=== PATIENT | male | born 1940 | race Caucasian/White ===

== ENCOUNTER 2021-02-15 09:59 | Outpatient (CLI) | payer MEDICARE, SELFPAY ==
--- NOTE | 2021-02-15 13:14 | WPDPFTINT ---
PFT Procedure Performed PFT Procedure Performed Spirometry with Pre/Post Bronchodilator Plethysmography (Lung Vol) Diffusing Cap (DLCO) Flow Vol Loop PFT Interpretation Lung volumes were measured with the body plethysmography method. The diminished across the board lung volumes are indicative of restrictive respiratory disease. Spirometry shows diminished expiratory flow rates, and a normal FEV1 to FVC ratio 79%, also consistent with restrictive respiratory disease. Following administration of a bronchodilator there was no significant change in the expiratory flow rates. Lung diffusion capacity is severely reduced at 51% predicted. Flow volume loop is consistent with restrictive respiratory disease. Impression: Severe restrictive respiratory disease. Severely reduced lung diffusion capacity.
--- NOTE | 2021-02-15 13:17 | WPDSIXMINUTE ---
Six Minute Walk Procedure Procedure Performed Pulmonary Stress Test (6 min walk) Six Minute Walk This 6 minute walk test was carried out with the patient breathing supplemental oxygen at 2 liters/minute. The pre-walk oxyhemoglobin saturation was 94%. The patient's perceived dyspnea at baseline was 0 on the Jose David scale. The patient was able to walk 213 m with no stops. Oxyhemoglobin saturation remained over 89% throughout the walk. The perceived dyspnea at the end of the walk was 3 on the Jose David scale. During the recovery phase the oxyhemoglobin saturation transiently decreased to 87%. Impression: No significant oxyhemoglobin desaturation on this testing.
== END 2021-02-15 10:00 | disposition home or self-care (01) ==
LOC: ANHPFT 10:02
PROVIDERS: PCP Nurse Practitioner Adult Health; Visit Provider Nurse Practitioner
DX: U07.1 COVID-19 (principal)
CPT/HCPCS: 94060; 94618; 94726; 94729

== ENCOUNTER 2023-06-20 18:25 | Emergency (ER) | payer MEDICARE, SELFPAY ==
[2023-06-20] VITALS (12 sets, daily range): BP systolic 105–172; BP diastolic 57–84; PULSE 83–116; RESP 15–25; TEMP 36.3; O2SAT 90–100
--- NOTE | ~2023-06-20 | XR_ITS ---
EXAMINATION: XR chest 2V DATE: 06/20/2023 19:22 INDICATION: Hypertension. TECHNIQUE: Frontal and lateral views of the chest were obtained. COMPARISON: CT abdomen 11/22/2007 FINDINGS: There is mild elevation of right hemidiaphragm. There is mild atelectasis at right lung bas e. No pleural effusion or pneumothorax. The heart size is . IMPRESSION: 1. Mild atelectasis at right lung base. Reviewed, dictated and finalized at location E. END DEVELOPER
--- NOTE | 2023-06-20 18:26 | ECG_ITS ---
Measurements Intervals [place] Rate: 112 P: MT: 0 QRS: -41 QRSD: 95 T: 5 QT: 300 QTc: 411 Interpretive Statements ATRIAL FLUTTER WITH RAPID VENTRICULAR RESPONSE ANTEROLATERAL INFARCT, AGE INDETERMINATE INFERIOR INFARCT, AGE INDETERMINATE BORDERLINE ST-T WAVE ABNORMALITY- HIGH LATERAL LEADS ABNORMAL ECG NO PREVIOUS ECG AVAILABLE FOR COMPARISON Electronically Signed On 06-20-2023 19:34:53 LOOM CHANGEOVER OPERATOR by Gera Sheffield D.O.
--- NOTE | 2023-06-20 18:37 | ED.ARRPALP ---
HPI - Arrhythmia/Palpitations General Chief Complaint: Arrhythmia/Palpitations Stated Complaint: fast heart rate Time Seen by Provider: 06/20/23 18:29 Source: patient and family ( and son) Mode of arrival: ambulatory Limitations: no limitations History of Present Illness HPI narrative: This is a 83-year-old male who presents with concern for fast heart rate. Patient has a monitor he places on his finger occasionally and he has noticed he has had of a fast heart rate for the past 3 days, noted to be in the 120s. Denies any shortness of breath, chest pain, palpitations. No LE edema. 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 Jacqueline Aguilar and has an appointment already scheduled for Thursday. He had a heart catheterization performed that showed <20% blockages in 2 coronary arteries. Patient's medication list includes: allopurinol, doxazosin (alpha kailash antihypertensive), finasteride, indapamide (diuretic), potassium chloride, atorvastatin, nifedipine 30mg once daily taken in the morning, metoprolol 50mg once daily taken at night, fluticasone, omeprazole. recently prescribed Bactrim for urinary tract infection has 3 more doses. Related Data Allergies Allergy/AdvReac Type Severity Reaction Status Date / Time No Known Allergies Allergy Mild Unverified 06/23/03 10:34 PMFSH Past Medical History Medical History COVID 2020 Hearing aid worn Long COVID On supplemental oxygen therapy 2LPM via nasal cannula QHS Surgical History Surgical History History of cardiac catheterization 16% blockage in one vessel; 14% blockage in another vessel by pt report; performed in [place] Social History Social History (Updated 06/20/23 @ 21:54 by Ludmila Pollack MD) Alcohol intake: current Drinks per week: 1 Alcohol use details: Drinks approximately 5 per month Living arrangements: with family Exam Narrative: GENERAL: Well-appearing, well-nourished, and in no acute distress. HEAD: Normocephalic, atraumatic. EYES: Non injected, non icteric ENT: Nares clear, no rhinorrhea or epistaxis. Hearing aid in right ear NECK: Supple. CHEST: Clear to auscultation bilaterally without wheezes, crackles. No respiratory distress. speaking in full sentences HEART: irregularly irregular rate and rhythm with intermittently bounding pulses in bilateral radial arteries ABDOMEN: Soft, nondistended. Obese EXTREMITIES: Normal range of motion. No edema. SKIN: Warm, dry, no rash. Telangiectasias across upper chest NEURO: No focal deficits. Alert and oriented x3. PSYCH: Normal mood and affect. Course Vital Signs Vital signs: Vital Signs Temperature 97.3 F L 06/20/23 18:31 Pulse Rate 116 H 06/20/23 18:31 Respiratory Rate 19 06/20/23 18:31 Blood Pressure 157/77 H 06/20/23 18:31 Pulse Oximetry 95 06/20/23 18:31 Temperature 97.3 F L 06/20/23 18:31 Pulse Rate 86 06/20/23 21:22 Respiratory Rate 16 06/20/23 21:22 Blood Pressure 133/57 L 06/20/23 21:22 Pulse Oximetry 98 06/20/23 21:22 MDM - Arrhythmia/Palpitations MDM Narrative Medical decision making narrative: Patient presented with concern for fast heart rate seen on a finger monitor but otherwise asymptomatic without dyspnea, chest pain or palpitations. Physical exam revealed an irregular and rapid heartbeat at a rate of 116 beats per minute. Based on this, the most likely diagnosis is atrial fibrillation versus aflutter with rapid ventricular response (AFib with RVR). This is supported by age, underlying cardiopulmonary disease, hypertension. An IV was placed and the patient was put on cardiac and pulse oximetry monitors. Patient is noted then to have a rate between 125 and 155. Patient hemodynamically stable thus early priority in management was to slow the ventricular rate using metoprolol given this is a medicat
[2023-06-20 18:44] LABS: Basophils Absolute Auto 0.1 K/mm3 (0.0-0.1); Basophils Percent Auto 0.7 % (0.2-1.2); Eosinophils Absolute Auto 0.3 K/mm3 (0-0.3); Eosinophils Percent Auto 2.7 % (0-4.4); Hematocrit 39.8 % (42.0-52.0); Hemoglobin 12.7 g/dL (14.0-18.0); Immature Granulocyte Absolute 0.12 K/mm3 (0.00-0.031); Immature Granulocyte Percent A 1.1 % (0-0.5); Lymphocytes Absolute Auto 2.01 K/mm3 (0.9-3.2); Lymphocytes Percent Auto 18.9 % (18.3-44.2); Mean Corpuscular HGB Conc 31.9 g/dl (32-36); Mean Corpuscular Hemoglobin 28.2 pg (26-34); Mean Corpuscular Volume 88.2 fl (80-100); Mean Platelet Volume 11.3 fl (7.4-10.4); Monocytes Percent Auto 9.4 % (2.6-8.5); Neutrophils Absolute Auto 7.1 K/mm3 (1.3-6.7); Neutrophils Percent Auto 67.2 % (45.5-73.1); Platelet Count Result 240 k/mm3 (150-375); Red Blood Count 4.51 M/mm3 (4.6-6.20); Red Cell Distribution Width 15.9 % (11.5-14.5); White Blood Count 10.6 K/mm3 (4.5-10.0)
[2023-06-20 18:55] LABS: INR 1.1; Prothrombin Time 14.6 Seconds (11.1-14.7)
[2023-06-20 18:56] LABS: Partial Thromboplastin Time 31.4 SECONDS (22.3-36.8)
[2023-06-20 18:58] LABS: Alanine Aminotransferase 84 U/L (6-50); Albumin Level 3.6 g/dL (3.5-5.1); Alkaline Phosphatase 202 U/L (38-126); Anion Gap 4 mmol/L (8-16); Aspartate Amino Transferase 70 U/L (17-59); Bilirubin,Total 0.6 mg/dL (0.2-1.3); Blood Urea Nitrogen 23 mg/dL (9-20); Calcium 9.1 mg/dL (8.4-10.2); Carbon Dioxide 27 mmol/L (22-30); Chloride 103 mmol/L (98-107); Estimated CRCL calculation 50 ml/min; Estimated Glomerular Filt Rate 58; Glucose 108 mg/dL (65-110); Lipase 192 U/L (23-300); Potassium 4.4 mmol/L (3.4-5.0); Sodium 134 mmol/L (137-145)
[2023-06-20 19:09] LABS: Troponin I < 0.012 ng/mL (0.000-0.034)
[2023-06-20] MEDS: METOPROLOL TARTRATE INJ 5 MG/5 ML VIAL 2.5 MG IV PUSH (19:37)
--- NOTE | 2023-06-20 20:13 | ECG_ITS ---
Measurements Intervals [place] Rate: 81 P: MD: 0 QRS: -32 QRSD: 99 T: 20 QT: 384 QTc: 446 Interpretive Statements ATRIAL FLUTTER WITH NORMAL VENTRICULAR RESPONSE LEFT AXIS DEVIATION CONSIDER ANTERIOR INFARCT, AGE INDETERMINATE INFERIOR INFARCT, AGE INDETERMINATE ABNORMAL ECG COMPARED TO ECG 06/20/2023 18:34:11 HEART RATE HAS DECREASED Electronically Signed On 06-21-2023 9:43:30 CDT by Gera Sheffield D.O.
[2023-06-20] MEDS: APIXABAN 5 MG TABLET PO (21:21)
== END 2023-06-20 21:24 | disposition home or self-care (01) ==
PROVIDERS: Emergency Provider Student in an Organized Health Care Education/Training Program; PCP Nurse Practitioner Adult Health
DX: I48.0 Paroxysmal atrial fibrillation (principal); D72.829 Elevated white blood cell count, unspecified; D64.9 Anemia, unspecified; E87.1 Hypo-osmolality and hyponatremia; R74.01 Elevation of levels of liver transaminase levels; Z79.899 Other long term (current) drug therapy
CPT/HCPCS: 36415; 71046; 80053; 83690; 83735; 84443; 84484; 85025; 85610; 85730; 93005; 96374; 99284; A9270

== ENCOUNTER 2023-09-10 08:29 | Outpatient (CLI) | payer MEDICARE, SELFPAY ==
--- NOTE | ~2023-09-10 | CT_ITS ---
CT of the Abdomen and Pelvis: Indication: Hematuria Technique: 2.5 mm axial scans were obtained through the abdomen and pelvis prior to and following in travenous administration of 130 cc of Omnipaque 350. Dose reduction technique was used on this scan b y utilizing automated exposure control and iterative reconstruction technique. The dose-length produc t (DLP) was 3052.55 mGy-cm. Findings: Scans through the lung bases demonstrate mild dependent atelectatic changes. The liver, spleen, pancreas, and adrenal glands are within normal limits. Kidneys are unremarkable as keith from small cysts. There is mild diffuse gallbladder wall thickening. There are atherosclerotic ca lcifications of the aorta. No lymphadenopathy. No bowel obstruction or bowel wall thickening. There is no evidence to suggest acute appendicitis. Images through the pelvis were performed. Multiple urinary bladder diverticula are present, largest p osteriorly measuring 5.7 cm in maximum diameter. Prostate gland is enlarged, and indents through the bladder base. No ascites. Impression: Enlarged prostate gland which indents the bladder base. Multiple urinary bladder diverticula. No definite bladder mass seen. Consider cystoscopy as indicated . Gallbladder wall thickening, nonspecific. Consider gallbladder ultrasound to further evaluate. Reviewed, dictated and finalized at location . Impression: Enlarged prostate gland which indents the bladder base. Multiple urinary bladder diverticula. No definite bladder mass seen. Consider c ystoscopy as indicated. Gallbladder wall thickening, nonspecific. Consider gallbladder ultrasound to fu rther evaluate.
[2023-09-10 08:53] LABS: Estimated Glomerular Filt Rate 53
== END 2023-09-10 08:30 | disposition home or self-care (01) ==
LOC: ANHIMG 08:31
PROVIDERS: PCP Nurse Practitioner Adult Health; Visit Provider Urology
DX: R31.0 Gross hematuria (principal); N40.0 Benign prostatic hyperplasia without lower urinary tract symptoms; N32.3 Diverticulum of bladder
CPT/HCPCS: 74178; Q9967

== ENCOUNTER 2023-09-18 13:39 | Outpatient (CLI) | payer MEDICARE, SELFPAY ==
--- NOTE | ~2023-09-18 | CT_ITS ---
EXAMINATION: CT diagnostic chest wo con DATE: 09/18/2023 14:13 INDICATION: Pulmonary fibrosis. TECHNIQUE: Computed tomography (CT) of the chest was performed without intravenous contrast. The dose -length product was 710.29 mGy-cm. Automated exposure control and iterative reconstruction technique were employed. COMPARISON: Chest x-ray dated 06/20/2023 FINDINGS: No thoracic lymphadenopathy. No significant pleural or pericardial effusion. Heart size nor mal. There is gallbladder wall thickening with subtle pericholecystic fatty infiltration. Recommend f urther evaluation of gallbladder with ultrasound low lung volumes. Elevated right diaphragm. There ar e calcified granulomas in the lungs. There are a few small noncalcified nodules measuring 2 mm or les s. There is lower lobe bronchiectasis. There is mild interlobular septal thickening of the lower lobe s and lingula. IMPRESSION: 1. Mild interstitial lung disease, likely chronic. 2: Gallbladder wall thickening with subtle pericholecystic fatty infiltration. Recommend further amanda luation with ultrasound. 3: Small scattered pulmonary nodules measuring 2 mm or less, likely benign. Reviewed, dictated and finalized at location B. IMPRESSION: 1. Mild interstitial lung disease, likely chronic. 2: Gallbladder wall thickening with subtle pericholecystic fatty infiltration. Recommend further evaluation with ultrasound. 3: Small scattered pulmonary nodules measuring 2 mm or less, likely benign.
== END 2023-09-18 13:40 | disposition home or self-care (01) ==
LOC: ANHIMG 13:41
PROVIDERS: PCP Nurse Practitioner Adult Health; Visit Provider Internal Medicine Pulmonary Disease
DX: J84.10 Pulmonary fibrosis, unspecified (principal); R91.8 Other nonspecific abnormal finding of lung field
CPT/HCPCS: 71250

== ENCOUNTER 2023-12-01 06:41 | Outpatient (CLI) | payer MEDICARE, SELFPAY ==
[2023-12-01 18:55] LABS: Alanine Aminotransferase 26 U/L (6-50); Albumin Level 3.6 g/dL (3.5-5.1); Alkaline Phosphatase 70 U/L (38-126); Anion Gap 5 mmol/L (4-12); Aspartate Amino Transferase 53 U/L (17-59); Bilirubin,Total 1.1 mg/dL (0.2-1.3); Blood Urea Nitrogen 22 mg/dL (9-20); Calcium 8.8 mg/dL (8.4-10.2); Carbon Dioxide 37 mmol/L (22-30); Chloride 99 mmol/L (98-107); Cholesterol 98 mg/dL (0-200); Estimated Glomerular Filt Rate > 60; Glucose 99 mg/dL (65-110); HDL Direct 31 mg/dL; Potassium 3.6 mmol/L (3.4-5.0); Sodium 141 mmol/L (137-145); Triglycerides 97 mg/dL (<150); Uric Acid 4.1 mg/dL (3.5-8.5)
[2023-12-01 19:06] LABS: LDL Cholesterol Direct 36 mg/dL
== END 2023-12-01 06:42 | disposition home or self-care (01) ==
PROVIDERS: PCP Nurse Practitioner Adult Health; Visit Provider Nurse Practitioner Adult Health
DX: E78.5 Hyperlipidemia, unspecified (principal); M10.9 Gout, unspecified
CPT/HCPCS: 36415; 80053; 80061; 84443; 84550

== ENCOUNTER 2024-01-04 15:46 | Outpatient (CLI) | payer MEDICARE, SELFPAY ==
[2024-01-04 20:12] LABS: Add Urine Microscopic? YES; Appearance Urine Turbid (Clear); Bacteria Urine 4+ /hpf; Bilirubin Urine Negative (Negative); Blood Urine 3+ (Negative); Color Urine Yellow (Yellow); Glucose Urine UA Negative (Negative); Ketones Urine Negative (Negative); Leukocyte Esterase Ur 3+ LEU/UL (Negative); Need Manual Microscopic Reviewed; Nitrate Urine Negative (Negative); Non Pathogenic Casts 0-2; Protein Urine 2+ mg/dL (Negative); RBC Urine 21-50 /hpf (0-2); Specific Grav Ur 1.016 (1.001-1.035); Squamous Epithelial Cell Urine Few /hpf (Few); Urobilinogen Urine 0.2 mg/dL (<2.0); WBC Urine >100 /hpf (0-3)
== END 2024-01-04 15:47 | disposition home or self-care (01) ==
LOC: ANHBWCLAB 15:48
PROVIDERS: PCP Nurse Practitioner Adult Health; Visit Provider Nurse Practitioner Adult Health
DX: R39.9 Unspecified symptoms and signs involving the genitourinary system (principal)
CPT/HCPCS: 81001; 87086

== ENCOUNTER 2024-01-20 09:48 | Outpatient (CLI) | payer MEDICARE, SELFPAY ==
[2024-01-20 18:47] LABS: Add Urine Microscopic? YES; Appearance Urine Turbid (Clear); Bacteria Urine 4+ /hpf; Bilirubin Urine Negative (Negative); Blood Urine 2+ (Negative); Color Urine Yellow (Yellow); Glucose Urine UA Negative (Negative); Ketones Urine Negative (Negative); Leukocyte Esterase Ur 3+ LEU/UL (Negative); Need Manual Microscopic Reviewed; Nitrate Urine Negative (Negative); Protein Urine 2+ mg/dL (Negative); Specific Grav Ur 1.015 (1.001-1.035); Squamous Epithelial Cell Urine Occasional /hpf (Few); Urobilinogen Urine 0.2 mg/dL (<2.0); WBC Urine >100 /hpf (0-3)
== END 2024-01-20 09:49 | disposition home or self-care (01) ==
LOC: ANHBWCLAB 09:50
PROVIDERS: PCP Nurse Practitioner Adult Health; Visit Provider Nurse Practitioner Adult Health
DX: R39.9 Unspecified symptoms and signs involving the genitourinary system (principal)
CPT/HCPCS: 81001; 87086

== ENCOUNTER 2024-01-26 09:43 | Outpatient (CLI) | payer MEDICARE, SELFPAY ==
[2024-01-26 19:17] LABS: INR 2.2; Prothrombin Time 24.7 Seconds (11.1-14.7)
[2024-01-26 19:18] LABS: Partial Thromboplastin Time 37.1 Seconds (22.3-36.8)
[2024-01-26 19:20] LABS: Add Urine Microscopic? YES; Appearance Urine Cloudy (Clear); Bacteria Urine None Seen /hpf; Bilirubin Urine Negative (Negative); Blood Urine 3+ (Negative); Color Urine Yellow (Yellow); Glucose Urine UA Negative (Negative); Ketones Urine Negative (Negative); Leukocyte Esterase Ur 3+ LEU/UL (Negative); Nitrate Urine Negative (Negative); Protein Urine 2+ mg/dL (Negative); RBC Urine 51-100 /hpf (0-2); Specific Grav Ur 1.014 (1.001-1.035); Squamous Epithelial Cell Urine None Seen /hpf (Few); Urobilinogen Urine 0.2 mg/dL (<2.0); WBC Urine >100 /hpf (0-3)
== END 2024-01-26 09:44 | disposition home or self-care (01) ==
LOC: ANHBWCLAB 09:45
PROVIDERS: PCP Nurse Practitioner Adult Health; Visit Provider Nurse Practitioner Adult Health
DX: R39.9 Unspecified symptoms and signs involving the genitourinary system (principal); Z51.81 Encounter for therapeutic drug level monitoring; Z79.899 Other long term (current) drug therapy
CPT/HCPCS: 36415; 81001; 85610; 85730; 87086

== ENCOUNTER 2024-02-23 13:51 | Outpatient (CLI) | payer MEDICARE, SELFPAY ==
[2024-02-23 19:22] LABS: Add Urine Microscopic? YES; Appearance Urine Turbid (Clear); Bacteria Urine 4+ /hpf; Bilirubin Urine Negative (Negative); Blood Urine 3+ (Negative); Budding Yeast Urine Present /hpf; Color Urine Yellow (Yellow); Glucose Urine UA Negative (Negative); Ketones Urine Negative (Negative); Leukocyte Esterase Ur 3+ LEU/UL (Negative); Need Manual Microscopic Reviewed; Nitrate Urine Negative (Negative); Non Pathogenic Casts 0-2; Protein Urine 2+ mg/dL (Negative); RBC Urine >100 /hpf (0-2); Specific Grav Ur 1.015 (1.001-1.035); Squamous Epithelial Cell Urine Few /hpf (Few); Urobilinogen Urine 0.2 mg/dL (<2.0); WBC Urine >100 /hpf (0-3); pH Urine 5.5 (5.0-9.0)
== END 2024-02-23 13:52 | disposition home or self-care (01) ==
LOC: ANHBWCLAB 13:53
PROVIDERS: PCP Nurse Practitioner Adult Health; Visit Provider Nurse Practitioner Adult Health
DX: N39.0 Urinary tract infection, site not specified (principal)
CPT/HCPCS: 81001; 87086

== ENCOUNTER 2024-05-18 10:00 | Outpatient (CLI) | payer MEDICARE, SELFPAY ==
--- OUTSIDE RECORDS SUMMARY | 2024-05-18 10:54 | XMS_ITS | Referral Summary ---
Author Organization [facility] Address [address] [place] [address] Care Team Providers Care Food Porter Name Role Phone Dayna Parikh SHABNAM-SENIOR PHYSICIAN Primary Care Provider + Source Comments [facility],non-owned Affiliates and Associated Physician Practices is amultiple site organization consisting of ambulatory clinics and hospital sitesin [place], [place], [place] and [place]. This disclosure is being madepursuant to the Care Everywhere program and may not contain all information available regarding this patient. Last updated 18.[facility] Allergies No known active allergies Medications * Be aware that medications may not be up to date on this document. Alwaysverify current medications with the patient. Medication Sig Dispensed Refills Start Date End Date Status allopurinol (ZYLOPRIM) 300 MG tablet Take 300 mg by mouth once daily Active aspirin (ASPIRIN) 81 MG chew tablet Take 81 mg by mouth once daily Active doxazosin (CARDURA) 8 MG tablet Take 8 mg by mouth at bedtime Active finasteride (PROSCAR) 5 MG tablet Take 5 mg by mouth once daily Active indapamide (LOZOL) 2.5 MG tablet Take 2.5 mg by mouth once daily Active potassium chloride ER (KLOR-CON M) 20 MEQ tablet Take 20 mEq by mouth 3 times daily Active losartan (COZAAR) 100 MG tablet Take 100 mg by mouth once daily Active NIFEdipine CR 24hr (ADALAT CC) 90 MG tablet Take 90 mg by mouth once daily Take on an empty stomach. Active Social History Tobacco Use Types Packs/Day Years Used Date Smoking Tobacco: Never Assessed Sex and Gender Information Value Date Recorded Sex Assigned at Not on file Gender Identity Not on file Sexual Orientation Not on file Last Filed Vital Signs Vital Sign Reading Time Taken Comments Blood Pressure 153/70 03/15/2018 11:55 AM FINANCIAL SERVICES MANAGER Pulse 73 03/15/2018 10:45 AM FINANCIAL SERVICES MANAGER Temperature 36.7 ??C (98 ??F) 03/15/2018 9:48 AM FINANCIAL SERVICES MANAGER Respiratory Rate 16 03/15/2018 10:4 5 AM FINANCIAL SERVICES MANAGER Oxygen Saturation 95% 03/15/2018 11: 56 AM FINANCIAL SERVICES MANAGER Inhaled Oxygen Concentration - - Weight 120.9 kg (266 lb 9.6 oz) 03/15/2018 9:59 AM FINANCIAL SERVICES MANAGER Height 175.3 cm (5' 9 ) 03/15/2018 9:59 AM FINANCIAL SERVICES MANAGER Body Mass Index 39.37 03/15/2018 9:59 AM FINANCIAL SERVICES MANAGER Plan of Treatment Not on file Care Teams Food Porter Relationship Specialty Start Date End Date Dayna Parikh APRN-CNP [address] [id number] PCP - General Nurse Practitioner 03/15/18
--- OUTSIDE RECORDS SUMMARY | 2024-05-18 10:54 | XMS_ITS | Patient Health Summary ---
Author Organization [facility] Address [facility] [place] [address] Care Team Providers Care Chairlift Operator Name Role Phone Dayna Parikh SHABNAM-RUSSIAN LANGUAGE PROFESSOR Primary Care Provider + Note from [facility],non-owned Affiliates and Associated Physician Practices is amultiple site organization consisting of ambulatory clinics and hospital sitesin [place], [place], [place] and [place]. This disclosure is being madepursuant to the Care Everywhere program and may not contain all information available regarding this patient. Last updated 18.[facility] Allergies No known active allergies Medications * Be aware that medications may not be up to date on this document. Alwaysverify current medications with the patient. * allopurinol (ZYLOPRIM) 300 MG tablet Take 300 mg by mouth once daily * aspirin (ASPIRIN) 81 MG chew tablet Take 81 mg by mouth once daily * doxazosin (CARDURA) 8 MG tablet Take 8 mg by mouth at bedtime * finasteride (PROSCAR) 5 MG tablet Take 5 mg by mouth once daily * indapamide (LOZOL) 2.5 MG tablet Take 2.5 mg by mouth once daily * potassium chloride ER (KLOR-CON M) 20 MEQ tablet Take 20 mEq by mouth 3 times daily * losartan (COZAAR) 100 MG tablet Take 100 mg by mouth once daily * NIFEdipine CR 24hr (ADALAT CC) 90 MG tablet Take 90 mg by mouth once daily Take on an empty stomach. Social History Tobacco Use Types Packs/Day Years Used Date Smoking Tobacco: Never Assessed Sex and Gender Information Value Date Recorded Sex Assigned at Not on file Gender Identity Not on file Sexual Orientation Not on file Last Filed Vital Signs Vital Sign Reading Time Taken Comments Blood Pressure 153/70 03/15/2018 11:55 AM HOMICIDE INVESTIGATOR Pulse 73 03/15/2018 10:45 AM HOMICIDE INVESTIGATOR Temperature 36.7 ??C (98 ??F) 03/15/2018 9:48 AM HOMICIDE INVESTIGATOR Respiratory Rate 16 03/15/2018 10:4 5 AM HOMICIDE INVESTIGATOR Oxygen Saturation 95% 03/15/2018 11: 56 AM HOMICIDE INVESTIGATOR Inhaled Oxygen Concentration - - Weight 120.9 kg (266 lb 9.6 oz) 03/15/2018 9:59 AM HOMICIDE INVESTIGATOR Height 175.3 cm (5' 9 ) 03/15/2018 9:59 AM HOMICIDE INVESTIGATOR Body Mass Index 39.37 03/15/2018 9:59 AM HOMICIDE INVESTIGATOR Procedures * CARDIAC EKG ORDER(Performed 04/23/2018) * MRI BRAIN WO CONTRAST(Performed 03/15/2018) Performed for Numbness * ABO TYPE: RETYPE-PATIENT RESULT ONLY(Performed 03/15/2018) * TYPE + SCREEN PANEL(Performed 03/15/2018) * HIV-1 HIV-2 ANTIGEN/ANTIBODY(Performed 03/15/2018) * HEPATITIS C AB SCREEN RFLX NAAT QUANT(Performed 03/15/2018) * TROPONIN I(Performed 03/15/2018) * PT-INR [facility](Performed 03/15/2018) * COMPREHENSIVE METABOLIC PANEL(Performed 03/15/2018) * CBC W AUTO DIFFERENTIAL(Performed 03/15/2018) * EKG 12-LEAD(Performed 03/15/2018) Performed for Numbness * CT ANGIO BRAIN NECK STROKE(Performed 03/15/2018) Performed for Numbness * GLUCOSE - POINT OF CARE(Performed 03/15/2018) * CT BRAIN STROKE(Performed 03/15/2018) Performed for Numbness Results * CARDIAC EKG ORDER (04/23/2018 1:29 PM HOMICIDE INVESTIGATOR) Narrative 04/23/2018 1:29 PM HOMICIDE INVESTIGATOR Ordered by an unspecified provider. Scanned Document CARDIAC SERVICES ORD ERABLES * MRI BRAIN WO CONTRAST (03/15/2018 11:50 AM HOMICIDE INVESTIGATOR) Anatomical Region Laterality Modality Head Magnetic Resonan ce 03/15/2018 12:1 6 PM HOMICIDE INVESTIGATOR Impressions 03/15/2018 12:18 PM HOMICIDE INVESTIGATOR IMPRESSION: No acute abnormality. Specifically, no acute stroke. This report was electronically signed by MARJ FRASER ??on 03/15/2018 12:18 PM . Narrative 03/15/2018 12:18 PM HOMICIDE INVESTIGATOR MRI BRAIN WITHOUT CONTRAST CLINICAL INFORMATION:stroke TECHNIQUE: MRI of the brain was performed without intravenous contrast according to standard protocol. COMPARISON: CT scan of the head from earlier the same day was reviewed. FINDINGS: There is no acute infarction or MR evidence of hemorrhage. Mild cerebral and cerebellar volume loss is noted. There are mild chronic microvascular ischemic changes. There is no intracranial mass or mass effect. There is no hydrocephalus or extra-axial fluid collection. The sella and posterior fossa structures are within normal limits. ??Flow voids of major intracranial vessels are noted. The paranasal sinuses and mastoid air cells are clear. Procedure Note Marj Fraser MD - 03/15/2018 MRI BRAIN WITHOUT CONTRAST CLINICAL INFORMATION:stroke TECHNIQUE: MRI of the brain was performed without intravenous contrast according to standard protocol. COMPARISON: CT scan of the head from earlier the same day was reviewed. FINDINGS: There is no acute infarction or MR evidence of hemorrhage. Mild cerebral and cerebellar volume loss is noted. There are mild chronicmicrovascular ischemic changes. There is no intracranial mass or mass effect. There is no hydrocephalus or extra-axial fluid collection. The sella andposterior fossa structures are within normal limits. Flow voids of major intracranial vessels are noted. The paranasal sinuses and mastoid air cells are clear. IMPRESSION: No acute abnormality. Specifically, no acute stroke. This report was electronically signed by MARJ FRASER on 03/15/2018 12:18 PM . Desean Torres MD MR ORDERABLES * RETYPE PATIENT (03/15/2018 10:19 AM [facility]) ABO 03/15/2018 11:30 AM [facility] Rh Type 03/15/2018 11:30 AM [facility] Typem 03/15/2018 11:30 AM [facility] Interpretation 03/15/2018 11:30 AM [facility] Blood BLOOD SPECIMEN / Unknown Lab Venipuncture / Unknown 03/15/2018 10:19 AM HOMICIDE INVESTIGATOR 03/15/2018 10:23 AM HOMICIDE INVESTIGATOR Narrative [facility] BLOOD [facility] LAB - 03/15/2018 11:30 AM HOMICIDE INVESTIGATOR Re-type confirmed per [facility] Blood Bank policies & procedures. Results documented in department. Lynnette Buckley MD LAB - BLOOD B ANK ORDERABLES Performing Organization Address [facility] Co de Phone Number [facility] [address] [place] [address] * PT-INR [facility] (03/15/2018 10:09 AM [facility]) PT 13.7 12.1 - 14.8 Seconds 03/15/2018 10:22 AM [facility] INR 1.1 See Comment 03/15/2018 10:22 AM [facility] Comment: The suggested therapeutic range for standard coumadin (warfarin) therapy is an INR of 2.0-3.0. For high-risk patients (Mechanical Mitral Valve Prosthesis, etc.), the suggested prophylactic therapeutic range is an INR of 2.5-3.5. Blood BLOOD SPECIMEN / Unknown Lab Venipuncture / Unknown 03/15/2018 10:09 AM HOMICIDE INVESTIGATOR 03/15/2018 10:12 AM HOMICIDE INVESTIGATOR Brenda Myers MD LAB - COAGULATION OR DERABLES Performing Organization Address [facility] Co de Phone Number [facility]ORATORY [address] [phone] * HIV-1 HIV-2 ANTIGEN/ANTIBODY (03/15/2018 10:09 AM [facility]) HIV Antigen/Antibod y 1 & 2 Non-reacti ve Non-react omaira 03/15/2018 11:37 AM [facility] Comment: Neither HIV-1 p24 Antigen nor HIV-1/HIV-2 Antibodies are detected. ? Blood BLOOD SPECIMEN / Unknown Venipuncture / Unknown 03/15/2018 10:09 AM HOMICIDE INVESTIGATOR 03/15/2018 10:13 AM HOMICIDE INVESTIGATOR Brenda Myers MD LAB - HEMATOLOGY ORD FLO [address] [phone] * HEPATITIS C AB SCREEN RFLX NAAT QUANT (03/15/2018 10:09 AM HOMICIDE INVESTIGATOR) [facility] Hepatitis C Antibody Non-react omaira Non-reac tive 03/15/2018 11:53 AM [facility] Comment: Hepatitis C Antibody screen indicates no serologic evidence of past or current infection with Hepatitis C Virus. Patients with unexplained liver disease who are immunocompromised or suspected of having acute Hepatitis C infection may benefit from Nucleic Acid Test (TOMMY) for Hepatitis C Viral RNA to confirm Hepatitis C status. Blood BLOOD SPECIMEN / Unknown Venipuncture / Unknown 03/15/2018 10:09 AM HOMICIDE INVESTIGATOR 03/15/2018 10:13 AM HOMICIDE INVESTIGATOR Brenda Myers MD LAB - CHEMISTRY [place] [facility] Performing Organization Address City/[facility]/ZIP Co de Phone Number [address] [phone] * TROPONIN I (03/15/2018 10:09 AM [facility]) [facility] Troponin I <0.010 <0.032 ng/mL 03/15/2018 10:45 AM [facility] Blood BLOOD SPECIMEN / Unknown Lab Venipuncture / Unknown 03/15/2018 10:09 AM HOMICIDE INVESTIGATOR 03/15/2018 10:13 AM HOMICIDE INVESTIGATOR Brenda Myers MD LAB - CHEMISTRY [place] [facility] [address] [phone] * TYPE + SCREEN PANEL (03/15/2018 10:09 AM [facility]) [facility] Antibody Screen NEG 8 11:06 AM [facility] ABO Rh A NEG 03/15/2018 11:06 AM [facility] Blood Bank BLOOD SPECIMEN / Unknown Venipuncture / Unknown 03/15/2018 10:09 AM HOMICIDE INVESTIGATOR 03/15/2018 10:16 AM [facility] Brenda Myers MD LAB - BLOOD BANK ORD ERABLES [facility] [address] * (ABNORMAL) CBC W AUTO DIFFERENTIAL (03/15/2018 10:09 AM [facility]) WBC 6.2 3.5 - 10.5 10? 3 /uL 03/15/2018 10:15 AM [facility] RBC 4.87 4.30 - 5.70 10? 6 /uL 03/15/2018 10:15 AM [facility] Hemoglobin 14.1 13.5 - 17.5 g/dL 03/15/2018 10:15 AM [facility] Hematocrit 42.6 39.0 - 50.0 % 03/15/2018 10:15 AM [facility] MCV 87.5 81.0 - 97.0 fL 03/15/2018 10:15 AM [facility] MCH 29.0 28.0 - 34.0 pg 03/15/2018 10:15 AM [facility] MCHC 33.1 32.0 - 36.0 g/dL 03/15/2018 10:15 AM [facility] Platelet Count 163 150 - 400 10? 3 /uL 03/15/2018 10:15 AM [facility] RDW-SD 46.7 36.0 - 50.0 fL 03/15/2018 10:15 AM [facility] RDW-CV 14.7 11.2 - 14.8 % 03/15/2018 10:15 AM [facility] MPV 12.4 9.3 - 12.8 fL 03/15/2018 10:15 AM [facility] Neutrophils % 80.0(H) 35.0 - 70.0 % 03/15/2018 10:15 AM [facility] Lymphocytes % 13.2(L) 19.7 - 55.1 % 03/15/2018 10:15 AM [facility] Monocytes % 5.8 3.0 - 15.0 % 03/15/2018 10:15 AM [facility] Eosinophils % 0.5 0.0 - 6.0 % 03/15/2018 10:15 AM [facility] Basophil % 0.5 0.0 - 1.5 % 03/15/2018 10:15 AM [facility] Neutrophils Absolute 5.0 1.6 - 7.0 10? 3 /uL 03/15/2018 10:15 AM [facility] Lymphocyte Absolute 0.8 0.8 - 2.9 10? 3 /uL 03/15/2018 10:15 AM [facility] Monocytes Absolute 0.36 0.14 - 0.66 10? 3 /uL 03/15/2018 10:15 AM [facility] Eosinophils Absolute 0.03 0.00 - 0.22 10? 3 /uL 03/15/2018 10:15 AM [facility] Basophils Absolute 0.03 0.00 - 0.06 10? 3 /uL 03/15/2018 10:15 AM [facility] Immature Granulocytes % 0.2 0.0 - 1.0 % 03/15/2018 10:15 AM [facility] Blood BLOOD SPECIMEN / Unknown Lab Venipuncture / Unknown 03/15/2018 10:09 AM [facility] 03/15/2018 10:12 AM [facility] Brenda Myers MD LAB - HEMATOLOGY ORD ERABLES [facility] [address] [phone] * (ABNORMAL) COMPREHENSIVE METABOLIC PANEL (03/15/2018 10:09 AM [facility]) BUN 14 7 - 26 mg/dL 03/15/2018 10:34 AM [facility] Creatinine 1.3(H) 0.6 - 1.2 mg/dL 03/15/2018 10:34 AM [facility] Sodium 140 136 - 145 mmol/L 03/15/2018 10:34 AM [facility] Potassium 3.3(L) 3.5 - 4.5 mmol/L 03/15/2018 10:34 AM [facility] Chloride 102 98 - 107 mmol/L 03/15/2018 10:34 AM [facility] CO2 24 22 - 29 mmol/L 03/15/2018 10:34 AM [facility] Glucose 102 70 - 115 mg/dL 03/15/2018 10:34 AM [facility] Calcium 9.6 8.4 - 10.2 mg/dL 03/15/2018 10:34 AM [facility] Protein Total 7.1 6.0 - 8.3 g/dL 03/15/2018 10:34 AM [facility] Albumin 3.3(L) 3.4 - 5.0 g/dL 03/15/2018 10:34 AM [facility] Bilirubin Total 0.9 0.2 - 1.2 mg/dL 03/15/2018 10:34 AM [facility] Alkaline Phosphatase 54 40 - 150 Units/L 03/15/2018 10:34 AM [facility] ALT 17 0 - 55 Units/L 03/15/2018 10:34 AM [facility] AST 24 5 - 34 Units/L 03/15/2018 10:34 AM [facility] Anion Gap 17 8 - 18 03/15/2018 10:34 AM [facility] BUN/Creatinine Ratio 11 7 - 23 03/15/2018 10:34 AM [facility] Osmolality Calculated 291 270 - 300 mOsm/kg 03/15/2018 10:34 AM [facility] Albumin/Globulin Ratio 0.9(L) 1.1 - 2.3 03/15/2018 10:34 AM [facility] eGFR 54(L) >60 mL/min/1.7 3 m2 03/15/2018 10:34 AM [facility] Blood BLOOD SPECIMEN / Unknown Lab Venipuncture / Unknown 03/15/2018 10:09 AM [facility] 03/15/2018 10:13 AM [facility] Brenda Myers MD LAB - CHEMISTRY [place] [facility] [address] [phone] * EKG 12-LEAD (03/15/2018 9:49 AM [facility]) Ventricular Rate 83 BPM [facility] MUSE Atrial Rate 83 BPM [facility] P-R Interval 184 ms [facility]USE QRS Duration ms 86 ms [facility] MUSE Q-T Interval ms 376 ms [facility] MUSE QTC Calculation (Bezet) 441 ms [facility] MUSE Calculated P [place] 63 degrees [facility] MUSE Calculated R [place] -28 degrees [facility] MUSE Calculated T [place] 17 degrees [facility] MUSE Interpretation EKG SINUS RHYTHM WITH PREMATURE ATRIAL COMPLEXES INFERIOR INFARCT (CITED ON OR BEFORE 15-MAR-2018) ABNORMAL ECG WHEN COMPARED WITH ECG OF 11-APR-2002 11:16, PREMATURE ATRIAL COMPLEXES ARE NOW PRESENT Confirmed by MD Tiffany, Ali ([id number]), school photograph editor Fanta Marsh ([id number]) on 04/10/2018 9:11:24 AM [facility] MUSE 03/15/2018 9:49 AM HOMICIDE INVESTIGATOR 04/10/2018 9:11 AM HOMICIDE INVESTIGATOR Brenda Myers MD ECG ORDERABLES [facility] MUSE * CT ANGIO BRAIN NECK STROKE (03/15/2018 9:40 AM HOMICIDE INVESTIGATOR) Anatomical Region Laterality Modality Head Computed Tomogra phy 03/15/2018 9:38 AM HOMICIDE INVESTIGATOR Impressions 03/15/2018 10:43 AM HOMICIDE INVESTIGATOR IMPRESSION: 1. No acute intracranial hemorrhage, midline shift, or significant mass effect. 2. Atherosclerotic vascular disease as described above without large arterial occlusions or significant stenoses identified in the head or neck. Preliminary results were discussed with Dr. Roberson by Dr. Dueñas on 03/15/2018 at 9:48 AM. This report was approved ??by Jacinta Dueñas M.D. ?? on 03/15/2018 9:52 AM . I, Dr. NINA KAPOOR M.D. have personally reviewed and interpreted this examination/study. This report was electronically signed by NINA KAPOOR M.D. ??on 03/15/2018 10:43 AM . Narrative 03/15/2018 10:43 AM HOMICIDE INVESTIGATOR EXAMINATION: 1. Computed tomographic (CT) angiography of the head without and with contrast 2. CT angiography of the neck with contrast HISTORY: Stroke symptoms TECHNIQUE: CT of the head was performed without contrast according to standard protocol. Then CT angiography of the head and neck was obtained after the uneventful administration of 50 mL Isovue 370 intravenous contrast. Three dimensional postprocessing was performed by the technologist and sent to the workstation for review. FINDINGS: No prior study is available for comparison at the time of this dictation. Non-angiographic findings: No acute intra- or extra-axial fluid collections are identified. There is mild cerebral volume loss with associated ex vacuo ventricular dilatation. The basilar cisterns are patent. No mass effect or midline shift is seen. The wooten-white matter differentiation is normal. Periventricular white matter hypoattenuation is indicative of chronic small vessel ischemic disease. There is vascular calcification of the carotid siphons. Other than bilateral cataract extractions, the visualized portions of the orbits, paranasal sinuses, and mastoids appear normal. No acute fracture is identified. No soft tissue abnormalities are identified in the neck. Tonsilloliths are present likely representing sequela of chronic tonsillitis. Degenerative changes are noted in the cervical spine. 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 The configuration of the brachiocephalic vessels is typical. The innominate artery and both subclavian arteries appear normal. The right common and internal carotid arteries as well as the right carotid bifurcation appear normal. There is atherosclerotic disease of the left carotid bifurcation and origin of the left internal carotid artery with less than 50 percent focal stenosis. The left common and internal carotid arteries otherwise appear normal. The cervical vertebral arteries appear normal. A chronic left lamina papyracea fracture is noted. There is atherosclerotic disease involving the distal internal carotid arteries without significant focal stenosis. The anterior and middle cerebral arteries appear normal. The distal vertebral arteries appear normal. The basilar artery and posterior cerebral arteries appear normal. No aneurysms, vascular occlusions, or intracranial stenoses are identified. Procedure Note Nina Kapoor MD - 03/15/2018 EXAMINATION: 1. Computed tomographic (CT) angiography of the head without and with contrast 2. CT angiography of the neck with contrast HISTORY: Stroke symptoms TECHNIQUE: CT of the head was performed without contrast according to standard protocol. Then CT angiography of the head and neck was obtained after the uneventful administration of 50 mL Isovue 370 intravenous contrast. Three dimensional postprocessing was performed by the technologist and sent to the workstation for review. FINDINGS: No prior study is available for comparison at the time of this dictation. Non-angiographic findings: No acute intra- or extra-axial fluid collections are identified. Thereis mild cerebral volume loss with associated ex vacuo ventriculardilatation. The basilar cisterns are patent. No mass effect or midline shift isseen. The wooten-white matter differentiation is normal. Periventricular white matter hypoattenuation is indicative of chronic small vessel ischemic disease. There is vascular calcification of the carotid siphons. Other than bilateral cataract extractions, the visualized portions of the orbits, paranasal sinuses, and mastoids appear normal. No acute fracture is identified. No soft tissue abnormalities are identified in the neck. Tonsillolithsare present likely representing sequela of chronic tonsillitis. Degenerative changes are noted in the cervical spine. 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 The configurationof the brachiocephalic vessels is typical. The innominate artery and both subclavian arteries appear normal. The right common and internal carotid arteries as well as the right carotid bifurcation appear normal. Thereis atherosclerotic disease of the left carotid bifurcation and origin ofthe left internal carotid artery with less than 50 percent focal stenosis.The left common and internal carotid arteries otherwise appear normal. The cervical vertebral arteries appear normal. A chronic left laminapapyracea fracture is noted. There is atherosclerotic disease involving the distal internal carotid arteries without significant focal stenosis. The anterior and middle cerebral arteries appear normal. The distal vertebral arteries appear normal. The basilar artery and posterior cerebral arteries appearnormal. No aneurysms, vascular occlusions, or intracranial stenoses are identified. IMPRESSION: 1. No acute intracranial hemorrhage, midline shift, or significant mass effect. 2. Atherosclerotic vascular disease as described above without large arterial occlusions or significant stenoses identified in the head or neck. Preliminary results were discussed with Dr. Roberson by Dr. Dueñas on 03/15/2018 at 9:48 AM. This report was approved by Jacinta Dueñas M.D. on 03/15/2018 9:52 AM . I, Dr. NINA KAPOOR M.D. have personally reviewed and interpreted this examination/study. This report was electronically signed by NINA KAPOOR M.D. on 03/15/2018 10:43 AM . Brenda Myers MD CT ORDERABLES * GLUCOSE - POINT OF CARE (03/15/2018 9:35 AM HOMICIDE INVESTIGATOR) Glucose WB/POC 88 70 - 115 mg/dL 03/15/2018 9:40 AM [facility] Specimen Type Arterial/C apillary 03/15/2018 9:40 AM HOMICIDE INVESTIGATOR [facility] Blood BLOOD SPECIMEN / Unknown 03/15/2018 9:35 AM HOMICIDE INVESTIGATOR 03/15/2018 9:40 AM HOMICIDE INVESTIGATOR Narrative [facility] - 03/15/2018 9:40 AM HOMICIDE INVESTIGATOR Instrumentation Technician: Denny ??Ciera Provider Unknown LAB - POINT OF CARE ORDERABLES Performing Organization Address City/State/[facility] Co de Phone Number [address] [phone] * CT BRAIN STROKE PROTOCOL (03/15/2018 9:32 AM HOMICIDE INVESTIGATOR) Anatomical Region Laterality Modality Head Computed Tomogra phy 03/15/2018 9:38 AM HOMICIDE INVESTIGATOR Impressions 03/15/2018 10:43 AM HOMICIDE INVESTIGATOR IMPRESSION: 1. No acute intracranial hemorrhage, midline shift, or significant mass effect. 2. Atherosclerotic vascular disease as described above without large arterial occlusions or significant stenoses identified in the head or neck. Preliminary results were discussed with Dr. Roberson by Dr. Dueñas on 03/15/2018 at 9:48 AM. This report was approved ??by Jacinta Dueñas M.D. ?? on 03/15/2018 9:52 AM . I, Dr. NINA KAPOOR M.D. have personally reviewed and interpreted this examination/study. This report was electronically signed by NINA KAPOOR M.D. ??on 03/15/2018 10:43 AM . Narrative 03/15/2018 10:43 AM HOMICIDE INVESTIGATOR EXAMINATION: 1. Computed tomographic (CT) angiography of the head without and with contrast 2. CT angiography of the neck with contrast HISTORY: Stroke symptoms TECHNIQUE: CT of the head was performed without contrast according to standard protocol. Then CT angiography of the head and neck was obtained after the uneventful administration of 50 mL Isovue 370 intravenous contrast. Three dimensional postprocessing was performed by the technologist and sent to the workstation for review. FINDINGS: No prior study is available for comparison at the time of this dictation. Non-angiographic findings: No acute intra- or extra-axial fluid collections are identified. There is mild cerebral volume loss with associated ex vacuo ventricular dilatation. The basilar cisterns are patent. No mass effect or midline shift is seen. The wooten-white matter differentiation is normal. Periventricular white matter hypoattenuation is indicative of chronic small vessel ischemic disease. There is vascular calcification of the carotid siphons. Other than bilateral cataract extractions, the visualized portions of the orbits, paranasal sinuses, and mastoids appear normal. No acute fracture is identified. No soft tissue abnormalities are identified in the neck. Tonsilloliths are present likely representing sequela of chronic tonsillitis. Degenerative changes are noted in the cervical spine. 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 The configuration of the brachiocephalic vessels is typical. The innominate artery and both subclavian arteries appear normal. The right common and internal carotid arteries as well as the right carotid bifurcation appear normal. There is atherosclerotic disease of the left carotid bifurcation and origin of the left internal carotid artery with less than 50 percent focal stenosis. The left common and internal carotid arteries otherwise appear normal. The cervical vertebral arteries appear normal. A chronic left lamina papyracea fracture is noted. There is atherosclerotic disease involving the distal internal carotid arteries without significant focal stenosis. The anterior and middle cerebral arteries appear normal. The distal vertebral arteries appear normal. The basilar artery and posterior cerebral arteries appear normal. No aneurysms, vascular occlusions, or intracranial stenoses are identified. Procedure Note Nina Kapoor MD - 03/15/2018 EXAMINATION: 1. Computed tomographic (CT) angiography of the head without and with contrast 2. CT angiography of the neck with contrast HISTORY: Stroke symptoms TECHNIQUE: CT of the head was performed without contrast according to standard protocol. Then CT angiography of the head and neck was obtained after the uneventful administration of 50 mL Isovue 370 intravenous contrast. Three dimensional postprocessing was performed by the technologist and sent to the workstation for review. FINDINGS: No prior study is available for comparison at the time of this dictation. Non-angiographic findings: No acute intra- or extra-axial fluid collections are identified. Thereis mild cerebral volume loss with associated ex vacuo ventriculardilatation. The basilar cisterns are patent. No mass effect or midline shift isseen. The wooten-white matter differentiation is normal. Periventricular white matter hypoattenuation is indicative of chronic small vessel ischemic disease. There is vascular calcification of the carotid siphons. Other than bilateral cataract extractions, the visualized portions of the orbits, paranasal sinuses, and mastoids appear normal. No acute fracture is identified. No soft tissue abnormalities are identified in the neck. Tonsillolithsare present likely representing sequela of chronic tonsillitis. Degenerative changes are noted in the cervical spine. 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 The configurationof the brachiocephalic vessels is typical. The innominate artery and both subclavian arteries appear normal. The right common and internal carotid arteries as well as the right carotid bifurcation appear normal. Thereis atherosclerotic disease of the left carotid bifurcation and origin ofthe left internal carotid artery with less than 50 percent focal stenosis.The left common and internal carotid arteries otherwise appear normal. The cervical vertebral arteries appear normal. A chronic left laminapapyracea fracture is noted. There is atherosclerotic disease involving the distal internal carotid arteries without significant focal stenosis. The anterior and middle cerebral arteries appear normal. The distal vertebral arteries appear normal. The basilar artery and posterior cerebral arteries appearnormal. No aneurysms, vascular occlusions, or intracranial stenoses are identified. IMPRESSION: 1. No acute intracranial hemorrhage, midline shift, or significant mass effect. 2. Atherosclerotic vascular disease as described above without large arterial occlusions or significant stenoses identified in the head or neck. Preliminary results were discussed with Dr. Roberson by Dr. Dueñas on 03/15/2018 at 9:48 AM. This report was approved by Jacinta Dueñas M.D. on 03/15/2018 9:52 AM . I, Dr. NINA KAPOOR M.D. have personally reviewed and interpreted this examination/study. This report was electronically signed by NINA KAPOOR M.D. on 03/15/2018 10:43 AM . Brenda Myers MD CT ORDERABLES Care Teams Chairlift Operator Relationship Specialty Start Date End Date Dayna Parikh APRN-[employer]USSI[employer] PROFESSOR [address] [id number] PCP - General Nurse Practitioner 03/15/18
--- OUTSIDE RECORDS SUMMARY | 2024-05-18 10:54 | XMS_ITS | Continuity of Care Document ---
Author Name [facility] Organization [facility] Care Team Providers Care Intermediate Project Manager Name Role Phone [facility] Unavailable Unavailable Problems Combined list of problems from [facility] and [facility] facilities. It does not include entries that were removed or entered in error. Problem Status Onset Date Problem Type Date of Resolution Comme nts Source Gout Active Condition [facility] Hypertension Active Condition [facility] Medications Combined list of outpatient medications from [facility] and [facility] facilities.Medications provided include 1) outpatient medications from the last 15 months, and 2) patient-reported medications. Medication Details Route Status Patient Instructions Prescription Expires Prescription Number Last Dispense Date Ordering Provider Order Date Order Qty Source ALLOPURINOL 100MG TAB TAKE ONE TABLET BY MOUTH ONCE A DAY ORAL ACTIVE IBETH ELMORE 2006 [facility] INDAPAMIDE 2.5MG TAB TAKE ONE TABLET BY MOUTH ONCE A DAY ORAL ACTIVE IBETH ELMORE 2006 [facility] NIFEDIPINE (EQV-CC) 90MG TAB,SA TAKE ONE TABLET BY MOUTH ORAL ACTIVE IBETH ELMORE 2006 [facility] POTASSIUM CHLORIDE 10MEQ TAB,SA TAKE ONE TABLET BY MOUTH ORAL ACTIVE IBETH ELMORE 2006 [facility] SIMVASTATIN 40MG TAB TAKE ONE-HALF TABLET BY MOUTH EVERY EVENING ORAL ACTIVE IBETH ELMORE 2006 [facility] TERAZOSIN HCL 10MG CAP TAKE 1 CAPSULE BY MOUTH AT BEDTIME ORAL ACTIVE IBETH ELMORE 2006 [facility] Immunizations Combined list of available immunizations from the [facility] and [facility] facilities. Immunization Series Date Given Administered By Site Reaction Lot Number CVX Code Drug Data Processing Auditor Status Comments Source INFLUENZA, UNSPECIFIED FORMULATION 2006 88 complet ed per letter [facility] INFLUENZA, UNSPECIFIED FORMULATION 2005 88 complet ed ZAC Marcus
--- OUTSIDE RECORDS SUMMARY | 2024-05-18 10:54 | XMS_ITS | Clinical Summary ---
Author Organization [facility] Address [address] [place] [address] Phone Care Team Providers Care Child Welfare Caseworker Name Role Phone Unavailable Primary Care Provider Unavailabl e Allergies Active Allergy Reactions Criticality Noted Date Comments Atorvastatin Muscle Pain Low 12/15/2020 Medications allopurinoL (ZYLOPRIM) 300 mg tablet Take 300 mg by mouth daily. Active doxazosin (CARDURA) 8 mg tablet Take 8 mg by mouth daily. Active omeprazole (PriLOSEC) 20 mg Capsule, Delayed Release(E.C.) Take 20 mg by mouth daily. Active finasteride (PROSCAR) 5 mg tablet Take 5 mg by mouth daily. Active indapamide (LOZOL) 2.5 mg tablet Take 2.5 mg by mouth daily in the morning. Active potassium chloride (KLOR-CON) 20 mEq Extended Release tablet Take 20 mEq by mouth daily. Active simvastatin (ZOCOR) 20 mg tablet Take 20 mg by mouth daily with supper. Active fluticasone propionate (FLONASE) 50 mcg/spray [place], Suspension nasal inhaler Administer 2 Sprays in each nostril daily. Active acetaminophen (TYLENOL) 325 mg tablet Take 2 Tablets (650 mg) by mouth every 6 hours as needed for Other (See Comment) (See admin instructions). Active albuterol sulfate 90 mcg/Actuation inhaler Take 2 Puffs by inhalation every 4 hours as needed for Shortness of Breath or Wheezing. 8.5 Gram 12/22/2020 5:52 PM CDT Active metoprolol succinate (TOPROL XL) 50 mg Extended Release 24 hour tablet Take 1 Tablet (50 mg) by mouth daily. 15 Tablet 12/22/2020 5:52 PM CDT Active Active Problems Problem Noted Date Diagnosed Date 2018 novel coronavirus disease (COVID-19) 2020 Pneumonia due to COVID-19 virus Immunizations Immunization Administration Dates Next Due INFLUENZA VACCINE QUADRIVALENT 6 MOS UP IM 03/19,03/01/2019,01/19/2018 Influenza Seasonal Unspecifi ed Formulation IM 01/11/2015,02/24/2013,02/11/2011 Influenza Vaccine High Dose 65+ Yrs IM 6,01/16/2014 Influenza, Unspecified Formulation 02/11/2007, Pneumococcal conjugate, unsp ecified formulation 02/11/2011 Td Vaccine >7 YO IM VFC 10/25/2000 Social History Tobacco Use Types Packs/Day Years Used Date Smoking Tobacco: Former Cigarettes Q uit: 1979 Smokeless Tobacco: Former Alcohol Use Standard Drinks/Week Comments Not Currently 0 (1 standard drink = 0.6 oz pur e alcohol) Sex and Gender Information Value Date Recorded Sex Assigned at Not on file Legal Sex Male 8:12 PM CDT Gender Identity Not on file Sexual Orientation Not on file Last Filed Vital Signs Vital Sign Reading Time Taken Comments Blood Pressure 135/86 12/22/2020 10:50 AM CDT Pulse 113 12/22/2020 10:50 AM CDT Temperature 36.8 ??C (98.2 ??F) 12/22/2020 10:50 AM C DT Respiratory Rate 15 12/22/2020 9:01 AM CDT Oxygen Saturation 89% 12/22/2020 10:50 AM CDT Inhaled Oxygen Concentration - - Weight 126.6 kg (279 lb) 12/20/2020 3:27 AM CDT Height 175.3 cm (5' 9 ) 12/10/2020 9:09 PM CDT Body Mass Index 41.2 12/10/2020 9:09 PM CDT Plan of Treatment Health Maintenance Due Date Last Done Comments PNEUMOCOCCAL VACCINE 65+ YEA RS (1 of 1 - PCV) 1991 02/11/2011 ZOSTER VACCINE (1 of 2) 1991 DTAP/TDAP/TD VACCINES (1 - Tdap) 10/26/2000 10/26/19 01 RSV VACCINE (60+ or ) (1 - 1-dose 75+ series) 2016 INFLUENZA VACCINE (#1) 2023 0, 03/01/2019, 01/19/2018, Additional history exists Insurance [employer] MEDICARE SUPP AESSI MEDICARE PART A AND B [employer] Medicare Part D Advance Directives For more information, please contact: [phone] * Full Code (Latest Code Status on File) Date Activated Date Inactivated Comments 12/13/2020 1:36 PM 12/22/2020 8:49 PM * Default Full Code - Needs Discussion Date Activated Date Inactivated Comments 12/11/2020 1:13 PM 12/13/2020 1:36 PM
--- OUTSIDE RECORDS SUMMARY | 2024-05-18 10:54 | XMS_ITS | CONTINUITY OF CARE DOCUMENT ---
Author Name ashkan luther Address Unknown Organization [facility] Address [address] [place] [address] Phone [phone] Care Team Providers Care Direct Sales Professional Name Role Phone Cedrick VASQUES, Yoav Unavailable [phone] MARYANNE VASQUES, TIARRA Unavailable [phone] ORALIA JOHNSON Unavailable PROBLEMS Condition Status Date Provider Notes cray fishing hand anticoagulant therapy active Crystal Cormier RN Bradycardia active Santos Stuart Abnormal electrocardiogram active Drea anguiano Morbid obesity active Yoav Philip MD CKD stage 3 GFR 30-59 active Yoav Avila BPH active Yoav Philip MD Hyperlipidemia active Yoav Philip MD Essential hypertension completed - Yoav Philip MD Aortic atherosclerosis completed - Yoav Philip MD Family History of CVA or Stroke: completed - Yoav Philip MD Family History of CVA or Stroke: completed - Yoav Philip MD 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, 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% mid RCA, 20% circ, LAD, Nl lv fn active Yoav Philip MD Edema varicose veins active Yoav Philip MD Personal history of COVID-19 , Covid Pneumonia 11/2020 on O2 at 2l completed - Yoav Philip MD 2019 novel coronavirus disea se (COVID-19) completed - Yoav Philip MD Hypertension active Yoav Philip MD Pneumonia due to COVID-19 virus active Scott Philip MD SARS-associated coronavirus completed 2020 - Yoav Philip MD Dyspnea on exertion active Hakan Hay SARKIS--on cpap, O2 active Hakan Hay Atrial fibrillation active Yoav Philip MD Atrial flutter active Yoav Philip MD ENCOUNTERS Date Type Provider Location Encounter Diag nosis - In-person encounter Office Visit Yoav Philip MD [facility] - In-person encounter Office Visit Yoav Philip MD [facility] - In-person encounter Office Visit Yoav Philip MD [facility] - In-person encounter Office Visit Yoav Philip MD [facility] - In-person encounter Office Visit Yoav Philip MD [facility] - In-person encounter Office Visit Yoav Philip MD [facility] Atrial fibrillationAtrial flutter - In-person encounter Office Visit Yoav Philip MD [facility] Aortic atherosclerosisFamily History of CVA or Stroke:CAD inf wall ischemia on stress, 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% mid RCA, 20% circ, LAD, Nl lv [id number] novel coronavirus disease (COVID-19)Dyspnea on exertionOSA--on cpap, O2 - In-person encounter Office Visit Yoav Philip MD [facility] Essential hypertension - In-person encounter Office Visit Yoav Philip MD [facility] Personal history of COVID-19, Covid Pneumonia 11/2020 on O2 at 2lSARS-associated coronavirus - In-person encounter Office Visit Yoav Philip MD [facility] - In-person encounter Office Visit Yoav Philip MD [facility] - In-person encounter Office Visit Yoav Philip MD [facility] HypertensionPneumoni a due to COVID-19 virus - In-person encounter Office Visit Yoav Philip MD [facility] - In-person encounter Office Visit Yoav Philip MD [facility] - In-person encounter Office Visit Yoav Philip MD [facility] - In-person encounter Office Visit Yoav Philip MD [facility] CAD inf wall ischemia on stress, 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% mid RCA, 20% circ, LAD, Nl lv fn - In-person encounter Office Visit Yoav Philip MD [facility] Family History of CVA or Stroke:CAD inf wall ischemia on stress, 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% mid RCA, 20% circ, LAD, Nl lv fnEdema varicose veins - In-person encounter Office Visit Yoav Philip MD [facility] VITAL SIGNS Date Observation Value Provider Body Mass Index (Ratio) 36.94 kg/m2 Scott Philip MD blood pressure, diastolic 80 mm[Hg] Karen Nicole blood pressure, systolic 167 mm[Hg] Dede Nicole oxygen saturation, oximetry 92 % Sharon Nicole pulse rate 65 /min Sharon Nicole respiratory rate E&M 12 /min Sharon Nicole weight E&M 243 [lb_av] Sharon Nicole height E&M 68 [in_i] Sharon Nicole blood pressure, cuff size regular Karen Nicole blood pressure, diastolic 83 mm[Hg] Karen gallardo [place] blood pressure, systolic 173 mm[Hg] Dede parks [place] oxygen saturation, oximetry 93 % [facility] E&M 12 /min [facility] Body Mass Index (Ratio) 37.55 kg/m2 Dago [facility] weight in kilograms E&M 112.04 kg Dago [facility] weight E&M 247 [lb_av] [facility] height E&M 68 [in_i] [facility] height in centimeters E&M 172.72 cm [facility] blood pressure, cuff size regular [facility] Body Mass Index (Ratio) 37.86 kg/m2 Scott Philip MD blood pressure, cuff size regular Addy mc [place] blood pressure, diastolic 76 mm[Hg] Addy mc [place] blood pressure, systolic 146 mm[Hg] Jhony saaba [place] oxygen saturation, oximetry 98 % Denise Horton pulse rate 68 /min Denise [place] respiratory rate E&M 12 /min Denise Sam weight E&M 249 [lb_av] Denise Sma height E&M 68 [in_i] Denise Sam Body Mass Index (Ratio) 37.73 kg/m2 Scott Philip MD blood pressure, cuff size regular Ta bitha Sam blood pressure, diastolic 90 mm[Hg] Ta bitha Sam blood pressure, systolic 158 mm[Hg] Tab itha Sam oxygen saturation, oximetry 95 % Denise Sam pulse rate 75 /min Denise [place] weight E&M 248.2 [lb_av] Denise Sam respiratory rate E&M 12 /min Denise Sam height E&M 68 [in_i] Denise Sam Body Mass Index (Ratio) 37.86 kg/m2 Scott Philip MD blood pressure, cuff size regular [facility] blood pressure, diastolic 81 mm[Hg] Ja et blood pressure, systolic 151 mm[Hg] Jar [facility] pulse rate 64 /min Sergio respiratory rate E&M 16 /min Sergio oxygen saturation, oximetry 94 % [facility] weight E&M 249 [lb_av] Sergio height E&M 68 [in_i] [facility] y Body Mass Index (Ratio) 36.94 kg/m2 Scott Philip MD blood pressure, diastolic 83 mm[Hg] Li nkLog blood pressure, systolic 138 mm[Hg] Radha kLog blood pressure, cuff size regular [facility] blood pressure, diastolic 83 mm[Hg] [facility] blood pressure, systolic 138 mm[Hg] [facility] 71 /min [facility] oxygen saturation, oximetry 94 % [facility] respiratory rate E&M 12 /min Gerri Toñito iller weight E&M 243 [lb_av] [facility] height E&M 68 [in_i] [facility] Body Mass Index (Ratio) 37.10 kg/m2 Scott Philip MD blood pressure, diastolic 84 mm[Hg] kevin Lainez blood pressure, systolic 164 mm[Hg] She rry Fatou blood pressure, cuff size regular Giovany Lainez oxygen saturation, oximetry 96 % Mandi Lainez pulse rate 64 /min Mandi Lainez respiratory rate E&M 20 /min Mandi Lainez weight E&M 244 [lb_av] Mandi Lainez height E&M 68 [in_i] Mandi Lainez Body Mass Index (Ratio) 40.44 kg/m2 Scott Philip MD blood pressure, diastolic 94 mm[Hg] Candy nkLog blood pressure, systolic 170 mm[Hg] Radha kLog blood pressure, diastolic 94 mm[Hg] St ephanie [place] blood pressure, systolic 170 mm[Hg] Brent phanie [place] oxygen saturation, oximetry 97 % Zaida Powersman respiratory rate E&M 16 /min Lane ie [place] pulse rate 67 /min Zaida Lohma n blood pressure, cuff size large St darennitimoteo [place] weight E&M 266 [lb_av] Zaida Lohma n height E&M 68 [in_i] Zaida Lohma n Body Mass Index (Ratio) 41.05 kg/m2 Scott Philip MD blood pressure, diastolic 57 mm[Hg] Saida Page blood pressure, systolic 161 mm[Hg] [facility] anusha Page oxygen saturation, oximetry 96 % Becky Page pulse rate 84 /min Becky avila weight E&M 270 [lb_av] Becky avila respiratory rate E&M 16 /min Reva Page blood pressure, cuff size large Saida Page height E&M 68 [in_i] Becky avila Body Mass Index (Ratio) 40.59 kg/m2 Scott Philip MD blood pressure, diastolic 73 mm[Hg] Li nkLogic blood pressure, systolic 139 mm[Hg] Radha kLogic blood pressure, diastolic 73 mm[Hg] Li nkLogic blood pressure, systolic 139 mm[Hg] Radha kLogic Inhaled O2 2 L/min Mable [place] blood pressure, diastolic 73 mm[Hg] Ca therine Jimmy blood pressure, systolic 139 mm[Hg] Cat herine [place] oxygen saturation, oximetry 95 % Mable Jimmy respiratory rate E&M 16 /min Catheri ne Jimmy pulse rate 78 /min Mable [place] weight E&M 267 [lb_av] Mable [place] blood pressure, cuff size large Ca therine Jimmy height E&M 68 [in_i] Mable [place] Body Mass Index (Ratio) 39.22 kg/m2 Scott Philip MD blood pressure, cuff size regular John Dahl RN blood pressure, diastolic 76 mm[Hg] John Dahl RN blood pressure, systolic 152 mm[Hg] Ravinder Dahl RN Inhaled O2 2 L/min Ravinder Dahl RN oxygen saturation, oximetry 95 % Ravinder Dahl RN respiratory rate E&M 22 /min Ravinder borden RN pulse rate 83 /min Ravinder Dahl RN weight E&M 258 [lb_av] Ravinder Dahl RN Body Mass Index (Ratio) 38.01 kg/m2 Scott Philip MD Inhaled O2 2 L/min Abigail Campbel l pulse rate 69 /min Abigail Campbel l blood pressure, cuff size regular Mehdi Lord blood pressure, diastolic 70 mm[Hg] Mehdi Lord blood pressure, systolic 142 mm[Hg] Daphnie Lord oxygen saturation, oximetry 95 % Abigail Lord respiratory rate E&M 16 /min Abigail Lord weight E&M 250 [lb_av] Abigail casey height E&M 68 [in_i] Abigail casey Body Mass Index (Ratio) 40.29 kg/m2 Scott Philip MD blood pressure, cuff size regular Cy dayton Lord blood pressure, diastolic 80 mm[Hg] Cy dayton Lord blood pressure, systolic 140 mm[Hg] Daphnie Lord oxygen saturation, oximetry 96 % Abigail Lord respiratory rate E&M 16 /min Abigail Lord pulse rate 64 /min Abigail casey weight E&M 265 [lb_av] Abigail casey height E&M 68 [in_i] Abigail Shay l Body Mass Index (Ratio) 41.20 kg/m2 Scott Philip MD blood pressure, cuff size large Ke rri Gruenenfelder blood pressure, diastolic 60 mm[Hg] Ke rri Gruenenfelder blood pressure, systolic 142 mm[Hg] Ker ri Rolandnenfjeremiaher oxygen saturation, oximetry 93 % Danisha Gruenenfelder respiratory rate E&M 18 /min Danisha G ruenenfelder pulse rate 75 /min Danisha Gruenenfe lder weight E&M 271 [lb_av] Danisha Gruenenfe lder height E&M 68 [in_i] Danisha Gruenenfe lder Body Mass Index (Ratio) 40.20 kg/m2 Scott Philip MD blood pressure, diastolic 77 mm[Hg] Calin Ruth [place]ford blood pressure, systolic 154 mm[Hg] Liseth Ortega [place] oxygen saturation, oximetry 95 % Jeanna Langford respiratory rate E&M 20 /min Minnie Langford pulse rate 70 /min Jeanna sánchez weight E&M 264.4 [lb_av] Jeanna arangoon temperature site temporal [place] sley temperature E&M 97.7 [degF] [place] ruth height E&M 68 [in_i] Jeanna sparrowon blood pressure, diastolic 70 mm[Hg] Lázaro Dunhamby blood pressure, systolic 140 mm[Hg] Madeline Dunhamby height E&M 68 [in_i] Rubi Casandra height in centimeters E&M 172.72 cm Lázaro chan Casandra Body Mass Index (Ratio) 41.20 kg/m2 Scott Philip MD blood pressure, cuff size regular Cy dayton Lord blood pressure, diastolic 70 mm[Hg] Mehdi alcantarasoniya Pop blood pressure, systolic 152 mm[Hg] Daphnie Lord oxygen saturation, oximetry 96 % Abigail Lord respiratory rate E&M 16 /min Abigail Lord pulse rate 78 /min Abigail Lavellebel l weight E&M 271 [lb_av] Abigail Campbel l height E&M 68 [in_i] Abigail Campbel l Body Mass Index (Ratio) 40.90 kg/m2 Scott Philip MD blood pressure, cuff size regular John Dahl RN blood pressure, diastolic 70 mm[Hg] John Dahl RN blood pressure, systolic 140 mm[Hg] Ravinder Dahl RN oxygen saturation, oximetry 97 % Ravinder Garciajose CROWELL respiratory rate E&M 16 /min Ravinder Khan suha CROWELL pulse rate 91 /min Ravinder Nabila CROWELL weight E&M 269 [lb_av] Ravinder Garciajose CROWELL height E&M 68 [in_i] Ravinder Nabila CROWELL Body Mass Index (Ratio) 39.98 kg/m2 Scott Philip MD blood pressure, cuff size regular Cr taz Cormier blood pressure, diastolic 80 mm[Hg] Cr taz Cormier blood pressure, systolic 140 mm[Hg] Cry stal Casa oxygen saturation, oximetry 96 % Ida Cormier respiratory rate E&M 17 /min Ida Cormier pulse rate 93 /min Ida garcia blood pressure, resting Yes Ashli jonathan Cormier weight E&M 263 [lb_av] Ida garcia height E&M 68 [in_i] Ida garcia ALLERGIES Allergy Name Onset Date Reaction Criticality Status NIFEDIPINE High Criticality active AMLODIPINE High Criticality active HYDRLAZINE High Criticality active ELIQUIS dizziness dizziness High Criticality active RESULTS Date Observation Value Provider Reference Range Interpretation Location coagulation managed by Ravinder Dahl RN international normalized ratio (INR) 3.5 Ravinder Dahl RN Normal prothrombin time (patient) 41.6 s Ravinder Dahl RN coagulation managed by Ravinder Dahl RN international normalized ratio (INR) 1.8 Ravinder Dahl RN Normal prothrombin time (patient) 21.4 s Ravinder Dahl RN coagulation managed by Ravinder Dahl RN international normalized ratio (INR) 2.2 Ravinder Dahl RN Normal prothrombin time (patient) 26.4 s Ravinder Dahl RN coagulation managed by Crystal Cormier RN international normalized ratio (INR) 2.6 Crystal Cormier RN Normal prothrombin time (patient) 30.9 s Crystal Cormier RN coagulation managed by Crystal Cormier RN coagulation managed by NANDO Collazo international normalized ratio (INR) 2.5 Linda Collazo Normal coagulation managed by Ravinder Dahl RN prothrombin time (patient) 20.9 s Ravinder Dahl RN coagulation managed by Linda Cormier RN international normalized ratio (INR) 2.0 Linda Collazo Normal coagulation managed by Crystal Cormier RN international normalized ratio (INR) 1.7 Crystal Cormier RN Normal prothrombin time (patient) 20.9 s Crystal Cormier RN coagulation managed by Ravinder Dahl RN international normalized ratio (INR) 1.5 Ravinder Dahl RN Normal prothrombin time (patient) 15.5 s Ravinder Dahl RN international normalized ratio (INR) 2.1 Normal prothrombin time (patient) 25.5 s Sergio coagulation managed by Crystal Cormier RN international normalized ratio (INR) 2.0 Crystal Cormier RN Normal prothrombin time (patient) 24.2 s Crystal Cormier RN coagulation managed by Crystal Cormier RN international normalized ratio (INR) 1.8 Crystal Cormier RN Normal prothrombin time (patient) 21.2 s Crystal Cormier RN coagulation managed by Ravinder Dahl RN international normalized ratio (INR) 4.7 Ravinder Dahl RN Normal prothrombin time (patient) 56.5 s Ravinder Dahl RN international normalized ratio (INR) 1.2 Linda Collazo Normal prothrombin time (patient) 1.8 s Linda Collazo prothrombin time (patient) 11.1 s [employer] 9.0-11.5 Normal international normalized ratio (INR) 1.1 [employer] Normal basophils as percent of blood leukocytes 1.1 % [employer] Normal eosinophils as percent of blood leukocytes 2.7 % [employer] Normal monocyte count, blood 10.3 % [employer] Normal lymphocyte count, blood 22.3 % [employer] Normal neutrophils as percent of blood leukocytes 63.6 % [employer] Normal basophils, absolute, manual 62 cells/mcL [facility] 0-200 Normal eosinophils, absolute, manual 151 cells/mcL [facility] 15-500 Normal monocytes, absolute, manual 577 cells/mcL [facility] 200-950 Normal lymphocytes, absolute 1249 CELLS/UL [facility] 850-3900 Normal Absolute Neutrophil count 3562 cells/mcL [facility] 4989-7907 Normal mean platelet volume 13.1 fL [facility] 7.5-12.5 High platelet count 164 THOUSAND/UL [facility] 140-400 Normal red blood cell distribution width 13.9 % [facility] 11.0-15.0 Normal mean corpuscular hemoglobin concentration, RBC 33.0 G/DL [facility] 32.0-36.0 Normal mean corpuscular hemoglobin, RBC 28.6 pg [facility] 27.0-33.0 Normal mean corpuscular volume, RBC 86.6 fL [facility] 80.0-100.0 Normal hematocrit, blood 43.3 % [facility] 38.5-50.0 Normal hemoglobin electrophoresis, blood 14.3 [facility] 13.2-17.1 Normal erythrocyte (RBC) count 5.00 MILLION/UL [facility] 4.20-5.80 Normal leukocyte (white blood cells) count, blood 5.6 THOUSAND/UL [facility] 3.8-10.8 Normal calcium, serum 9.7 mg/dL [facility] 8.6-10.3 Normal carbon dioxide, venous blood 31 mmol/L [facility] 20-32 Normal chloride, serum 101 mmol/L [facility] 98-110 Normal potassium, serum 3.8 mmol/L [facility] 3.5-5.3 Normal sodium, serum 141 mmol/L [facility] 135-146 Normal urea nitrogen/creatini ne ratio, serum 15 (calc) [facility] 6-22 Normal Estimated Glomerular Filtration Rate (calc) 62 mL/min/{1.73 _m2} LinkLogic > OR = 60 Normal creatinine, serum 1.28 mg/dL [facility] 0.70-1.18 High urea nitrogen, blood 19 mg/dL [facility] 7-25 Normal blood glucose, random 97 mg/dL [facility] 65-99 Normal cholesterol, non-HDL, total 95 MG/DL (CALC) LinkLogic <130 Normal cholesterol/HDL ratio, serum, percent 3.1 (calc) LinkLog[facility] <5.0 Normal LDL cholesterol, serum 76 MG/DL (CALC) [facility]Log[facility] Normal triglyceride, serum, fasting 103 mg/dL LinkLogic <150 Normal HDL cholesterol, serum 46 mg/dL LinkLog[facility] >40 Normal cholesterol, serum 141 mg/dL LinkLogic <200 Normal HISTORY OF MEDICATION USE Medication Status Instructions Dates Provider Indications Com ments warfarin 5 mg tablet active Take 1 tablet by mouth every evening Jesscia Aroldo indapamide 2.5 mg tablet active TAKE 2 TABLETS BY MOUTH ONCE DAILY (5 MG) Laurie Ruple Eliquis 2.5 mg tablet completed TAKE 1 TABLET BY MOUTH TWICE DAILY - Jessica Aroldo atorvastatin 40 mg tablet active Take 1 tablet by mouth every night at bedtime Danisha Mendiola metoprolol succinate 100 mg tablet extended release 24 hr active Take 1 tablet by mouth once daily Yoav Philip MD warfarin 5 mg tablet completed Take 1 tablet by mouth every evening EXCEPT Tue take (one half) 1/2 tablet to =2.5 mg - Hakan Hay warfarin 5 mg tablet completed Take 1/2 tablet by mouth every evening on 10/02 and 10/03 - Crystal Cormier RN losartan 25 mg tablet completed TAKE 1 TABLET BY MOUTH TWICE DAILY - Ravinder Dahl RN hydralazine 50 mg tablet completed Take 1 tablet by mouth twice a day - Yoav Philip MD amlodipine 10 mg tablet completed Take 1 tablet by mouth once a day - Yoav Philip MD metoprolol succinate 100 mg tablet extended release 24 hr completed Take 1 tablet by mouth once daily - Sergio Hernandez omeprazole 40 mg capsule,delayed release(DR/EC) active Hakan Hay Xarelto 15 mg tablet completed Take 1 tablet by mouth once a day - Denise Sam nifedipine 30 mg tablet extended release completed - Hakan Hay Eliquis 5 mg tablet completed - Yoav Philip MD sulfamethoxazol e-trimethoprim 800-160 mg tablet completed - Hakan Hay atorvastatin 40 mg tablet completed TAKE 1 TABLET BY MOUTH AT BEDTIME - Danisha Mendiola atorvastatin 40 mg tablet completed Take 1 tablet by mouth at bedtime - Janay Cormier metoprolol succinate 100 mg tablet extended release 24 hr completed Take 1 tablet by mouth once daily - Sergio Hernandez simvastatin 20 mg tablet completed Take 1 tablet by mouth once daily - Hakan Hay omeprazole 20 mg tablet,disinteg rat, delay rel completed Take 1 tablet once a day as needed - Hakan Hay metoprolol succinate 50 mg tablet extended release 24 hr completed 1 tablet every night - Kia [place] OMEGA 3 FISH OIL 1000 MG CAPS completed Take 1 tablet once a day - Yoav Philip MD simvastatin 20 mg tablet completed 1 tablet once a day - Mable Marquez OMEPRAZOLE 20 MG ORAL TABLET DELAYED RELEASE completed take one capsule by mouth once daily - Jeanna Langford nifedipine 30 mg tablet extended release completed Take 1 tablet by mouth every night - Yoav Philip MD losartan 100 mg tablet completed Take 1 tablet by mouth once a day - Hakan Hay Klor-Con M20 20 mEq tablet,ER particles/cryst als active Take 1 tablet by mouth three times a day Hakan Hay indapamide 2.5 mg tablet completed Take 2 tablet by mouth once a day = 5mg - Laurie Guy fluticasone propionate 50 mcg/actuation spray,suspensio n active [place] 2 spray once a day Hakan Hay finasteride 5 mg tablet active Take 1 tablet by mouth once a day Hakan Hay doxazosin 8 mg tablet active Take 1 tablet by mouth once a day Hakan Hay aspirin 81 mg tablet,delayed release (DR/EC) completed Take 1 tablet by mouth once a day - Yoav Philip MD allopurinol 300 mg tablet active Take 1 tablet by mouth once a day Hakan Hay SOCIAL HISTORY Date Observation Value Provider smoking status Never smoker Yoav Philip MD smoking status Never smoker Hakan Hay smoking status Never smoker Hakan Hay smoking status Never smoker Yoav Philip MD smoking status Never smoker Hakan Hay smoking status Never smoker Hakan Hay social history E&M S moking History: P yanivdory has never smoked. Hakan Hay social history reviewed E&M revi ewed - no changes required Hakan Hay smoking status Never smoker Mandi Lainez social history E&M S moking History: P atdory is a former smoker. Hakan Hay smoking status Former smoker Zaida may social history reviewed E&M revi ewed - no changes required Hakan Hay social history E&M S moking History: P atdory is a former smoker. Hakan Hay smoking status Former smoker Becky short social history reviewed E&M revi ewed - no changes required Yoav Philip MD social history E&M S moking History: P vaughn is a former smoker. Hakan Hay social history reviewed E&M revi ewed - no changes required Hakan Hay smoking status Former smoker Mable yusuf social history reviewed E&M revi ewed - no changes required Hakan Hay smoking status Former smoker Abigail olivier social history E&M S moking History: P vaughn is a former smoker. Yoav Philip MD social history reviewed E&M revi ewed - no changes required Hakan Hay social history E&M S moking History: P vaughn is a former smoker. Ronak Acosta social history reviewed E&M revi ewed - no changes required Ronak Acosta smoking status Former smoker Abigail olivier social history E&M S moking History: P vaughn is a former smoker. Ronak Acosta social history reviewed E&M revi ewed - no changes required Ronak Acosta smoking status Former smoker Danisha Watkinsyadira josue social history E&M S moking History: Noah mendes is a former smoker. Yoav Philip MD social history reviewed E&M revi ewed - no changes required Yoav Philip MD smoking status Former smoker Jeanna Kelley number of grandchildren Yoav Philip MD T cierra Philip MD social history E&M S moking History: Noah mendes is a former smoker. Yoav Philip MD social history reviewed E&M revi ewed - no changes required Yoav Philip MD smoking status Former smoker Abigail Lavelle olivier social history reviewed E&M revi ewed - no changes required Yoav Philip MD social history E&M S moking History: Noah mendes is a former smoker. Yoav Philip MD smoking status Former smoker Ravinder Jj social history reviewed E&M revi ewed - no changes required Yoav Philip MD social history E&M S moking History: Noah mendes is a former smoker. Yoav Philip MD smoking status Former smoker Yoav Philip MD FUNCTIONAL STATUS Date Observation Value Provider HRA, CV Assess/Plan, Angina (inactive) Management Plan continue current therapy Ronak Acosta HRA, CV Assess/Plan, Angina (inactive) Management Plan continue current therapy Hakan Ahmedzai HRA, CV Assess/Plan, Angina (inactive) Management Plan continue current therapy Hakan Ahmedzai HRA, CV Assess/Plan, Angina (inactive) Management Plan continue current therapy Hakan Ahmedzai HRA, CV Assess/Plan, Angina (inactive) Management Plan continue current therapy Hakan Ahmedzai HRA, CV Assess/Plan, Angina (inactive) Management Plan continue current therapy Hakan Ahmedzai HRA, CV Assess/Plan, Angina (inactive) Management Plan continue current therapy Hakan Ahmedzai HRA, CV Assess/Plan, Angina (inactive) Management Plan continue current therapy Hakan Ahmedzai HRA, CV Assess/Plan, Angina (inactive) Management Plan continue current therapy Hakan Ahmedzai HRA, CV Assess/Plan, Angina (inactive) Management Plan continue current therapy Hakan Ahmedzai HRA, CV Assess/Plan, Angina (inactive) Management Plan continue current therapy Ronak Nacht HRA, CV Assess/Plan, Angina (inactive) Management Plan continue current therapy Ronak Nacht HRA, CV Assess/Plan, Angina (inactive) Management Plan continue current therapy Yoav Philip MD HRA, CV Assess/Plan, Angina (inactive) Management Plan continue current therapy Yoav Philip MD FAMILY HISTORY Family Member Condition Maternal Grandfather Family History of C VA or Stroke: Father Family History of CV A or Stroke: Mother Family History of Di abetes: INSURANCE PROVIDERS Payer name Policy type / Coverage type Tilden red alliance party ID AETNA [facility] Commercial insuran [employer] [id number] [place] Medicare [id number] ADVANCE DIRECTIVES Name Date DISCUSSED - NO DECISION MADE TREATMENT PLAN Date Name Performer [id number],S, Hakan Ahmedza i [id number],S, Hakan Ahmedza i [id number],S, Hakan Ahmedza i [id number],S, Hakan Ahmedza i [id number],S, Hakan Ahmedza i [id number],S, Hakan Ahmedza i [id number],S, Hakan Ahmedza i [id number],S, Hakan Ahmedza i [id number],S, Hakan Ahmedza i [id number],S, Hakan Ahmedza i [id number],S, Hakan Ahmedza i [id number],S, Hakan Ahmedza i [id number],S, Hakan Ahmedza i [id number],S, Hakan Ahmedza i [id number],S, Hakan Ahmedza i [id number],B, Hakan Ahmedza i [id number],S, Hakan Ahmedza i [id number],S, Hakan Ahmedza i [id number],S, Hakan Ahmedza i [id number],S, Hakan Ahmedza i [id number],S, Hakan Ahmedza i [id number],S, Hakan Ahmedza i [id number],S, Hakan Ahmedza i [id number],S, Hakan Ahmedza i [id number],S, Hakan Ahmedza i [id number],S, Hakan Ahmedza i [id number],S, Hakan Ahmedza i [id number],S, Hakan medza i [id number],B, Yoav Philip MD [id number],S, Yoav Philip MD [id number],S, Yoav Philip MD [id number],S, Yoav Philip MD [id number],B, Yoav Philip MD Cardiology:This visi t has been a part of the consistent, comprehensive, and ongoing management of the chronic medical condition(s) listed above for the patient. Yoav Philip MD Cardiology: T he patient is using CPAP on a regular basis. The patient has been benefiting from therapy and should continue use. [facility] oRnak Acosta Cardiology:This visi t has been a part of the consistent, comprehensive, and ongoing management of the chronic medical condition(s) listed above for the patient. The following medications were removed from the medication list: Warfarin 5 Mg Tablet (Warfarin) ..... Take 1 tablet by mouth every evening except tue take (one half) 1/2 tablet to =2.5 mg His updated medication list for this problem includes: Metoprolol Succinate 100 Mg Tablet Extended Release 24 Hr (Metoprolol succinate) ..... Take 1 tablet by mouth once daily Yoav Philip MD Cardiology: H is updated medication list for this problem includes: Atorvastatin 40 Mg Tablet (Atorvastatin) ..... Take 1 tablet by mouth every night at bedtime [facility]: B P today: 173/83 P rior BP: 146/76 (12/07/2023) Labs Reviewed: C reat: 1.28 (12/17/2018) C hol: 141 (12/17/2018) HDL: 46 (12/17/2018) LDL: 76 MG/DL (CALC) (12/17/2018) T (12/17/2018) His updated medication list for this problem includes: Metoprolol Succinate 100 Mg Tablet Extended Release 24 Hr (Metoprolol succinate) ..... Take 1 tablet by mouth once daily Indapamide 2.5 Mg Tablet (Indapamide) ..... Take 2 tablet by mouth once a day = 5mg Doxazosin 8 Mg Tablet (Doxazosin) ..... Take 1 tablet by mouth once a day [facility] Cardiology: T he following medications were removed from the medication list: Warfarin 5 Mg Tablet (Warfarin) ..... Take 1 tablet by mouth every evening except tue take (one half) 1/2 tablet to =2.5 mg His updated medication list for this problem includes: Metoprolol Succinate 100 Mg Tablet Extended Release 24 Hr (Metoprolol succinate) ..... Take 1 tablet by mouth once daily [facility]: T he following medications were removed from the medication list: Warfarin 5 Mg Tablet (Warfarin) ..... Take 1 tablet by mouth every evening except tue take (one half) 1/2 tablet to =2.5 mg His updated medication list for this problem includes: Metoprolol Succinate 100 Mg Tablet Extended Release 24 Hr (Metoprolol succinate) ..... Take 1 tablet by mouth once daily [facility] Yoav Philip MD Cardiology:This kristen t has been a part of the consistent, comprehensive, and ongoing management of the chronic medical condition(s) listed above for the patient. His updated medication list for this problem includes: Warfarin 5 Mg Tablet (Warfarin) ..... Take 1 tablet by mouth every evening except tue and sun take (one half) 1/2 tablet to =2.5 mg Metoprolol Succinate 50 Mg Tablet Extended Release 24 Hr (Metoprolol succinate) ..... Take 1 tablet by mouth once daily Yoav Philip MD Cardiology [facility] Card[facility]: H is updated medication list for this problem includes: Indapamide 2.5 Mg Tablet (Indapamide) ..... Take 2 tablet by mouth once a day = 5mg Metoprolol Succinate 50 Mg Tablet Extended Release 24 Hr (Metoprolol succinate) ..... Take 1 tablet by mouth once daily Doxazosin 8 Mg Tablet (Doxazosin) ..... Take 1 tablet by mouth once a day BP today: 146/76 P rior BP: 158/90 (09/22/2023) Labs Reviewed: C reat: 1.28 (12/17/2018) C hol: 141 (12/17/2018) HDL: 46 (12/17/2018) LDL: 76 MG/DL (CALC) (12/17/2018) T (12/17/2018) Hakan Hay Cardiology [facility] Cardiology:Denies angina, SOB. C ontinue medical therapy [facility] Cardiology:not renan to toerlate DOAC, will start warfarin [facility] Cardiology: H is updated medication list for this problem includes: Losartan 25 Mg Tablet (Losartan) ..... Take 1 tablet by mouth twice daily Metoprolol Succinate 100 Mg Tablet Extended Release 24 Hr (Metoprolol succinate) ..... Take 1 tablet by mouth once daily Indapamide 2.5 Mg Tablet (Indapamide) ..... Take 1 tablet by mouth once a day Doxazosin 8 Mg Tablet (Doxazosin) ..... Take 1 tablet by mouth once a day BP today: 158/90 P rior BP: 151/81 (07/15/2023) Labs Reviewed: C reat: 1.28 (12/17/2018) C hol: 141 (12/17/2018) HDL: 46 (12/17/2018) LDL: 76 MG/DL (CALC) (12/17/2018) T (12/17/2018) [facility] Yoav Philip MD Telehealth Yoav Philip MD Telehealth Yoav Philip MD Telehealth Yoav Philip MD Telehealth: H is updated medication list for this problem includes: Amlodipine 5 Mg Tablet (Amlodipine) ..... Take 1 tablet by mouth once a day Metoprolol Succinate 50 Mg Tablet Extended Release 24 Hr (Metoprolol succinate) ..... Take 1 tablet by mouth once daily Yoav Philip MD Cardiology: H is updated medication list for this problem includes: Metoprolol Succinate 100 Mg Tablet Extended Release 24 Hr (Metoprolol succinate) ..... Take 1 tablet by mouth once daily [facility] Cardiology: T he following medications were removed from the medication list: Nifedipine 30 Mg Tablet Extended Release (Nifedipine) His updated medication list for this problem includes: Metoprolol Succinate 100 Mg Tablet Extended Release 24 Hr (Metoprolol succinate) ..... Take 1 tablet by mouth once daily [facility]: B P today: 151/81 P rior BP: 138/83 (06/23/2023) Labs Reviewed: C reat: 1.28 (12/17/2018) C hol: 141 (12/17/2018) HDL: 46 (12/17/2018) LDL: 76 MG/DL (CALC) (12/17/2018) T (12/17/2018) The following medications were removed from the medication list: Nifedipine 30 Mg Tablet Extended Release (Nifedipine) His updated medication list for this problem includes: Metoprolol Succinate 100 Mg Tablet Extended Release 24 Hr (Metoprolol succinate) ..... Take 1 tablet by mouth once daily Indapamide 2.5 Mg Tablet (Indapamide) ..... Take 1 tablet by mouth once a day Doxazosin 8 Mg Tablet (Doxazosin) ..... Take 1 tablet by mouth once a day [facility] Cardiology: H is updated medication list for this problem includes: Atorvastatin 40 Mg Tablet (Atorvastatin) ..... Take 1 tablet by mouth at bedtime [facility] Cardiology: B P today: 138/83 P rior BP: 164/84 (12/23/2022) Labs Reviewed: C reat: 1.28 (12/17/2018) C hol: 141 (12/17/2018) HDL: 46 (12/17/2018) LDL: 76 MG/DL (CALC) (12/17/2018) T (12/17/2018) His updated medication list for this problem includes: Metoprolol Succinate 100 Mg Tablet Extended Release 24 Hr (Metoprolol succinate) ..... Take 1 tablet by mouth once daily Nifedipine 30 Mg Tablet Extended Release (Nifedipine) ..... Take 1 tablet by mouth every night Indapamide 2.5 Mg Tablet (Indapamide) ..... Take 1 tablet by mouth once a day Aspirin 81 Mg Tablet,delayed Release (dr/ec) (Aspirin) ..... Take 1 tablet by mouth once a day Doxazosin 8 Mg Tablet (Doxazosin) ..... Take 1 tablet by mouth once a day [facility] Cardiology: O rders: C ardioversion (23255) T EE (64633) [facility]akan Ahmedzai Cardiology: O rders: C ardioversion (76138) T EE (65060) [facility] Yoav Philip MD Cardiology Yoav Philip MD Cardiology Yoav Philip MD Cardiology Yoav Philip MD Cardiology Yoav Philip MD Cardiology follow up [facility] follow [facility] follow up [facility] follow up [facility] Follow up [facility] Follow up [facility] Follow up [facility] Follow up [facility] Follow up [place] Yoav Philip MD Cardiology Yoav Philip MD Cardiology Yoav Philip MD Cardiology Yoav Philip MD Cardiology Yoav Philip MD Cardiology hospital follow up To zhao Philip MD Cardiology hospital follow up To zhao Philip MD Cardiology hospital follow up To zhao Philip MD Cardiology hospital follow up To zhao Philip MD Cardiology hospital follow up To zhao Philip MD Cardiology hospital follow up To zhao Philip MD Cardiology follow up Yoav mercado MD Cardiology follow up Yoav mercado MD Cardiology follow up Yoav mercado MD Cardiology follow up Yoav mercado MD Cardiology follow up Yoav mercado MD Cardiology follow up Yova mercado MD Cardiology Yoav Philip MD Cardiology Yoav Philip MD Cardiology Yoav Philip MD Cardiology Yoav Philip MD Cardiology Yoav Philip MD Date Name Holter Monitor 48 hr BASIC METABOLIC PANE L W/EGFR PROTHROMBIN TIME WIT H INR MAGNESIUM LIPID PANEL PROTHROMBIN TIME WIT H INR CBC (INCLUDES DIFF/P LT) BASIC METABOLIC PANE L W/EGFR Venous Doppler Bilat eral LE Stress Regadenoson Complete Echo HISTORY OF PROCEDURES Procedure Date Procedure Name Provider Procedure Notes S tatus Complex e/m visit add on Yoav Philip MD completed Complex e/m visit add on Yoav Philip MD completed Complex e/m visit add on Yoav Philip MD completed Complex e/m visit add on Yoav Philip MD completed Protime Whitney Ababsi MD compl eted Protruperto Lozano MD complete d Protime Marcus Lozano MD complete d Protime Yoav Philip MD completed Protime Alex Riley MD complete d Protime Yoav Philip MD completed Complex e/m visit add on Yoav Philip MD completed Protime Marcus Lozano MD complete d Protime Gilson Rosario MD completed Protime Linda Collazo completed Protime Yoav Philip MD completed Protime Crystal Cormier RN completed Protime Yoav Philip MD completed Protime Marcus Lozano MD complete d EKG Yoav Philip MD completed EKG Yoav Philip MD completed Mobile Cardiac Telem etry - Tech Yoav Philip MD completed Mobile Cardiac Telem etry - Prof Yoav Philip MD completed Mobile Cardiac Telem etry - Tech Yoav Philip MD completed Mobile Cardiac Telem etry - Prof Yoav Philip MD completed EKG Yoav Philip MD completed Regadenoson, 4 units Yoav Philip MD completed Cardiolite, 2 units Yoav Philip MD completed SPECT Images Yoav Philip MD complet ed Stress EKG Yoav Philip MD completed EKG Yoav Philip MD completed
--- OUTSIDE RECORDS SUMMARY | 2024-05-18 10:54 | XMS_ITS | Clinical Summary ---
Author Organization [facility] Address [address] [place] [address] Care Team Providers Care Management And Budget Analyst Name Role Phone Dayna Parikh NP Primary Care Provider [phone] Allergies Active Allergy Reactions Criticality Noted Date Comments Amlodipine Swelling Medium 10/23/2023 Hydralazine Swelling Medium 10/23/2023 Swelling and headaches Nifedipine Swelling Medium 10/23/2023 Swelling and headache Medications allopurinoL (ZYLOPRIM) 300 mg tablet Take 1 tablet (300 mg total) by mouth daily Active potassium chloride ER 20 mEq CR tablet Take 1 tablet (20 mEq total) by mouth 3 (three) times a day 3 Active doxazosin (CARDURA) 8 mg tablet Take 1 tablet (8 mg total) by mouth daily Active indapamide (LOZOL) 2.5 mg tablet Take 1 tablet (2.5 mg total) by mouth daily 7 Active metoprolol XL (TOPROL-XL) 100 mg 24 hr tablet Take 1 tablet (100 mg total) by mouth daily Active atorvastatin (LIPITOR) 40 mg tablet Take 1 tablet (40 mg total) by mouth nightly Active finasteride (PROSCAR) 5 mg tablet Take 1 tablet (5 mg total) by mouth daily Active fluticasone propionate (FLONASE) 50 mcg/actuation nasal spray Administer 2 sprays into each nostril daily Active omeprazole (PriLOSEC) 40 mg capsule Take 1 capsule (40 mg total) by mouth daily Active aspirin 81 mg enteric coated tablet Take 1 tablet (81 mg total) by mouth daily 4 Active omega-3 fatty acids-fish oil 300-1,000 mg capsule Take 2 capsules (2 g total) by mouth daily Active losartan (COZAAR) 25 mg tablet Take 1 tablet (25 mg total) by mouth 2 (two) times a day Active apixaban (Eliquis) 2.5 mg tablet Eliquis 2.5 mg tablet 4 Active Active Problems Problem Noted Date Diagnosed Date Pulmonary fibrosis (CMS/HCC) 10/23/2023 Assessment & Plan (10/23/2023 1:23 PM CDT): Scarring appears chronic since COVID-19 infection He has recovered significantly from initial infection I do not have access to recent CT done at [facility], requested images If unchanged or improving areas of fibrosis, likely will not require further follow-up SARKIS (obstructive sleep apnea) 10/23/2023 Assessment & Plan (10/23/2023 1:23 PM CDT): Positive in-lab study with AHI 39.6 Order for titration study in lab Referral to sleep medicine We have discussed the risks of uncorrected sleep apnea Nocturnal hypoxemia 09/24/2023 Morbid (severe) obesity due to excess calories 0 09/15/2023 COVID-19 04/13/2020 Overview (09/14/2023): Was in the hosptial for 4 weeks. 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 Encounters Date Type Department Care Team Description 05/06/2024 Telephone [facility] [address] [place] [address] [address] [place] [address] Kimberly Patel MA 05/04/2024 Telephone [facility] [address] [place] [address] [address] [place] [address] Nuris Ventura MD 03/15/2024 10:15 AM BOILER/CHILLER TECHNICIAN Office Visit [facility] Sleep Medicine at [address] [place] [address] Nuris Ventura MD Obstructive sleep apnea (Primary Dx); Hypersomnolence; Obesity, unspecified class, unspecified obesity type, unspecified whether serious comorbidity present from Last 3 Months Surgical History Surgery Date Site/Laterality Comments CATARACT EXTRACTION 04/13/2016 - 04/12/2017 N/A PARTIAL KNEE ARTHROPLASTY 04/13/2014 - 04/12/2015 Right PARTIAL KNEE ARTHROPLASTY 04/13/2015 - 04/12/2016 Left HERNIA REPAIR 04/13/1989 - 04/12/1990 Medical History Medical History Date Comments Cancer of the skin, basal cell 2018 Cancer of the skin, basal cell 2019 Covid-19 2020 Was in the hospt ial for 4 weeks. Social History Tobacco Use Types Packs/Day Years Used Date Smoking Tobacco: Former Cigarettes 0.8 6 1 994 - 2000 Tobacco Cessation:Counseling Given: Not Answered Sex and Gender Information Value Date Recorded Sex Assigned at Not on file Legal Sex Male 6:05 AM BOILER/CHILLER TECHNICIAN Gender Identity Not on file Sexual Orientation Not on file Obstetrics History Last Filed Vital Signs Vital Sign Reading Time Taken Comments Blood Pressure 155/64 03/15/2024 10:22 AM BOILER/CHILLER TECHNICIAN Pulse 59 03/15/2024 10:22 AM BOILER/CHILLER TECHNICIAN Temperature 36.2 ??C (97.2 ??F) 10/23/2023 8:56 AM CD T Respiratory Rate 18 12/25/2023 10:23 AM CDT Oxygen Saturation 95% 03/15/2024 10:22 AM BOILER/CHILLER TECHNICIAN Inhaled Oxygen Concentration - - Weight 108.4 kg (239 lb) 03/15/2024 10:22 AM BOILER/CHILLER TECHNICIAN Height 172.7 cm (5' 7.99 ) 03/15/2024 10:[address] Body Mass Index 36.35 03/15/2024 10:22 AM BOILER/CHILLER TECHNICIAN Plan of Treatment Health Maintenance Due Date Last Done Comments Depression Screening 1940 Fall Risk Assessment 1940 Hepatitis B Screening 1959 Zoster Vaccine (1 of 2) 1991 DTaP/Tdap/Td Vaccine (1 - Tdap) 10/26/2000 1 Well Visit 65+ 2006 Covid-19 Vaccine (7 - 2023-2 5 season) 2023 01/05/2023, 01/06/2022, 08/22/2021, Additional history exists Influenza Vaccine (#1) 2023 3, 12/19/2021, 02/13/2021, Additional history exists Pneumococcal vaccine 65+ Completed 018, 01/09/2017, 02/11/2011 Insurance MEDICARE [employer] SENIOR SUPPLEMENT Care Teams Management And Budget Analyst Relationship Specialty Start Date End Date Dayna Parikh NP [address] [place] [address] PCP - General Nurse Practitioner 10/23/23
--- OUTSIDE RECORDS SUMMARY | 2024-05-18 10:54 | XMS_ITS | Referral Summary ---
Author Organization [facility] Building B Address [address] [place] [address] Care Team Providers Care Artificial Teeth Inspector Name Role Phone Cadentaylor Dayna RADHA Primary Care Provider Encounters Date Type Department Care Team Description 05/06/2024 Telephone [facility] [address] [place] [address] [address] [place] [address] Kimberly Patel MA 05/04/2024 Telephone [facility] [address] [place] [address] [address], [place] [address] Nuris Ventura MD 03/15/2024 10:15 AM GIS DEVELOPER Office Visit [facility] Sleep Medicine at [address] [place] [address] Nuris Ventura MD Obstructive sleep apnea (Primary Dx); Hypersomnolence; Obesity, unspecified class, unspecified obesity type, unspecified whether serious comorbidity present from Last 3 Months Allergies Active Allergy Reactions Criticality Noted Date Comments Amlodipine Swelling Medium 10/23/2023 Hydralazine Swelling Medium 10/23/2023 Swelling and headaches Nifedipine Swelling Medium 10/23/2023 Swelling and headache Medications allopurinoL (ZYLOPRIM) 300 mg tablet Take 1 tablet (300 mg total) by mouth daily Active potassium chloride ER 20 mEq CR tablet Take 1 tablet (20 mEq total) by mouth 3 (three) times a day Active doxazosin (CARDURA) 8 mg tablet Take [...] have access to recent CT done at [facility], requested images If unchanged or improving [...] 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 Social History Tobacco Use Types Packs/Day Years Used Date Smoking Tobacco: Former Cigarettes 0.8 6 1 994 - 2000 Tobacco Cessation:Counseling Given: Not Answered Sex and Gender Information Value Date Recorded Sex Assigned at Not on file Legal Sex Male 6:05 AM GIS DEVELOPER Gender Identity Not on file Sexual Orientation Not on file Last Filed Vital Signs Vital Sign Reading Time Taken Comments Blood Pressure 155/64 03/15/2024 10:22 AM GIS DEVELOPER Pulse 59 03/15/2024 10:22 AM GIS DEVELOPER Temperature 36.2 ??C (97.2 ??F) 10/23/2023 8:56 AM CD T Respiratory Rate 18 12/25/2023 10:23 AM CDT Oxygen Saturation 95% 03/15/2024 10:22 AM GIS DEVELOPER Inhaled Oxygen Concentration - - Weight 108.4 kg (239 lb) 03/15/2024 10:22 AM GIS DEVELOPER Height 172.7 cm (5' 7.99 ) 03/15/2024 10:[address] Body Mass Index 36.35 03/15/2024 10:22 AM GIS DEVELOPER Plan of Treatment Not on file Insurance MEDICARE AET SENIOR SUPPLEMENT Care Teams Artificial Teeth Inspector Relationship Specialty Start Date End Date Dayna Parikh NP [address] [place] [address] PCP - General Nurse Practitioner 10/23/23
--- OUTSIDE RECORDS SUMMARY | 2024-05-18 10:54 | XMS_ITS | Clinical Summary ---
Author Organization [facility] Address [address] [place] [address] Care Team Providers Care Auto Driver Name Role Phone Dayna Parikh SHABNAM-OFFSET PLATE MAKER Primary Care Provider + Source Comments [facility],non-owned Affiliates and Associated Physician Practices is amultiple site organization consisting of ambulatory clinics and hospital sitesin [place], [place], [place] and [place]. This disclosure is being madepursuant to the Care Everywhere program and may not contain all information available regarding this patient. Last updated 18.[facility] [employer] Allergies No known active allergies Medications * [...] Comments Blood Pressure 153/70 03/15/2018 11:55 AM WILD OYSTER HARVESTER Pulse 73 03/15/2018 10:45 AM WILD OYSTER HARVESTER Temperature 36.7 ??C (98 ??F) 03/15/2018 9:48 AM WILD OYSTER HARVESTER Respiratory Rate 16 03/15/2018 10:4 5 AM WILD OYSTER HARVESTER Oxygen Saturation 95% 03/15/2018 11: 56 AM WILD OYSTER HARVESTER Inhaled Oxygen Concentration - - Weight 120.9 kg (266 lb 9.6 oz) 03/15/2018 9:59 AM WILD OYSTER HARVESTER Height 175.3 cm (5' 9 ) 03/15/2018 9:59 AM WILD OYSTER HARVESTER Body Mass Index 39.37 03/15/2018 9:59 AM WILD OYSTER HARVESTER Plan of Treatment Health Maintenance Due Date Last Done Comments MEDICARE AWV ? 12 MONTHS 1940 DTAP/TDAP/TD VACCINES (1 - Tdap) 1960 PNEUMOCOCCAL VACCINE 50+ (1 of 1 - PCV) 1991 ZOSTER VACCINE (1 of 2) 1991 Respiratory Syncytial Virus (RSV) Vaccine Pt: or over 60 yrs (1 - 1-dose 75+ series) 2016 COVID-19 VACCINE ( - 2023-2 5 season) 2023 INFLUENZA VACCINE (#1) 2023 DEPRESSION SCREENING 04/13/2024 HEPATITIS B VACCINE Aged Out No longe r eligible based on patient's age to complete this topic HIB VACCINE Aged Out No longer eligi ble based on patient's age to complete this topic HPV VACCINE Aged Out No longer eligi ble based on patient's age to complete this topic MENINGOCOCCAL (Group B) VACCINE Aged Out No longer eligible based on patient's age to complete this topic MENINGOCOCCAL VACCINE Aged Out No lisa compa eligible based on patient's age to complete this topic Care Teams Auto Driver Relationship Specialty Start Date End Date Dayna Parikh APRN-ERIN [address] [address] PCP - General Nurse Practitioner 03/15/18
--- OUTSIDE RECORDS SUMMARY | 2024-05-18 10:54 | XMS_ITS | Continuity of Care Document ---
Author Organization [facility] Address [address] [place] [address] Phone Care Team Providers Care Residency Program Coordinator Name Role Phone Joshua Sherman Unavailable Unavailable Procedures Procedure Date Post-op Follow-up Visit Refraction BF Plastic Sphcyl [place] To +/-4d .12-2d Scratch Resistant Coating Post-op Follow-up Visit Remove Cataract, Insert Lens PreOp Assessment Performed Eye Exam, New Patient Echo Exam Of Eye Advance Directives Directive Yes / No Effective Date File Name No Information Encounters Encounter Description Practice Location Reason(s) For Visit Diagnoses Date Provider Providers Copied on Encounter [facility], [address] [place] [address] [address], [place], [place], [address], [place] tel:[phone] SEC [facility] No Information [address] , [address], [place], [address], [place]. tel:[phone] [facility], [address], [place], [place], [id number], [place] tel:[phone] SEC [facility] [place] No Information [address] [employer] . [address] [facility], [address], [place], [place], [address], [place]. tel:[phone] Referring Provider: Joshua Kam, [address] [employer] [address], [place], [place], [facility]. tel:[phone] [facility], [address], [place], [place], [address], tel:[phone] SEC [facility] No Information Sep-[address] [facility] [facility] [address], [place], [place], [facility], [place]. tel:[phone] [facility], [address], [place], [place], [address], [place] tel:[phone] [facility] No Information Sep-[address] [facility] [address] [place], [address], [place], [place], [facility], . tel:[phone] [facility], [address] [place] [address] [address], [place], [place], [address], [place] tel:[phone] [facility] No Information Sep-[address] [facility] [address], [address], [place], [place], [facility], [place]. tel:[phone] Referring Provider: Joshua Kam, [facility] [address], [place], [place], [facility]. tel:[phone] Family History Family Member Type Diagnosis Age At Onset No Information Payers Payer name Insurance type Covered green party ID Authoriza tion(s) No Information Social History Type Description Quantity Date Captured Comments Sex Male Smoking Status No Information Chief Complaint And Reason For Visit No Information Reason For Referral Reason For Referral No Information History Of Present Illness Encounter Date Complaint History Of Prese nt Illness No Information Functional Status Date Functional Assessmen t No Information Instructions Date Instruction Additional Infor mation No Information Assessments Type Assessment Date No Information Patient Care Teams Name Effective Dates (start - stop) Status Members No Information
[2024-05-18 19:04] LABS: Alanine Aminotransferase 24 U/L (6-50); Albumin Level 3.6 g/dL (3.5-5.1); Alkaline Phosphatase 89 U/L (38-126); Anion Gap 7 mmol/L (4-12); Aspartate Amino Transferase 39 U/L (17-59); Blood Urea Nitrogen 23 mg/dL (9-20); Calcium 9.1 mg/dL (8.4-10.2); Carbon Dioxide 34 mmol/L (22-30); Chloride 101 mmol/L (98-107); Cholesterol 96 mg/dL (0-200); Estimated Glomerular Filt Rate > 60; Glucose 100 mg/dL (65-110); HDL Direct 32 mg/dL; Magnesium 2.3 mg/dL (1.6-2.3); Potassium 3.7 mmol/L (3.4-5.0); Sodium 142 mmol/L (137-145); Triglycerides 113 mg/dL (<150)
[2024-05-18 19:15] LABS: LDL Cholesterol Direct 32 mg/dL
== END 2024-05-18 10:01 | disposition home or self-care (01) ==
PROVIDERS: PCP Nurse Practitioner Adult Health; Visit Provider Nurse Practitioner Adult Health
DX: I10 Essential (primary) hypertension (principal)
CPT/HCPCS: 36415; 80053; 80061; 83735

== ENCOUNTER 2024-11-07 15:22 | Outpatient (CLI) | payer MEDICARE, SELFPAY ==
--- NOTE | ~2024-11-07 | CT_ITS ---
CT Scan of the Chest without Contrast: Clinical Indication: Pulmonary fibrosis Technique: Contiguous sections were acquired throughout the chest without intravenous contrast. Dose reduction technique was used on this scan by utilizing automated exposure control and iterative recon struction technique. The dose-length product (DLP) was 598.51 mGy-cm. COMPARISON: 09/18/2023 Findings: There is no evidence of any significant mediastinal, hilar or axillary lymphadenopathy. The mediastin al soft tissues appear normal. There is no evidence of pleural or pericardial effusion. Mild groundglass opacity in the lungs with minimal interstitial prominence is similar to prior exam, compatible with chronic interstitial disease. Images through the upper abdomen reveal no abnormalities. Impression: Mild chronic interstitial disease, similar to prior exam. Reviewed, dictated and finalized at location . Impression: Mild chronic interstitial disease, similar to prior exam.
--- OUTSIDE RECORDS SUMMARY | 2024-11-07 15:29 | XMS_ITS | Clinical Summary ---
Author Organization [facility] Address [address] [facility] [place] [address] Care Team Providers Care Sustainable Agriculture Specialist Name Role Phone Dayna Parikh SHABNAM-FREIGHT BOOKER Primary Care Provider + Source Comments [facility],non-owned Affiliates and Associated Physician Practices is amultiple site organization consisting of ambulatory clinics and hospital sitesin [place], [place], [place] and [place]. This disclosure is being madepursuant to the Care Everywhere program and may not contain all information available regarding this patient. Last updated 18.[facility] [employer] Allergies No known active allergies Medications * Be aware that medications may not be up to date on this document. Alwaysverify current medications with the patient. 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 Gender Identity Not on file Sexual Orientation Not on file Last Filed Vital Signs Vital Sign Reading Time Taken Comments Blood Pressure 153/70 03/15/2018 11:55 AM MERCHANDISE SUPPORT ASSOCIATE Pulse 73 03/15/2018 10:45 AM MERCHANDISE SUPPORT ASSOCIATE Temperature 36.7 C (98 F) 03/15/2018 9:48 AM MERCHANDISE SUPPORT ASSOCIATE Respiratory Rate 16 03/15/2018 10:4 5 AM MERCHANDISE SUPPORT ASSOCIATE Oxygen Saturation 95% 03/15/2018 11: 56 AM MERCHANDISE SUPPORT ASSOCIATE Inhaled Oxygen Concentration - - Weight 120.9 kg (266 lb 9.6 oz) 03/15/2018 9:59 AM MERCHANDISE SUPPORT ASSOCIATE Height 175.3 cm (5' 9) 03/15/2018 9:59 AM MERCHANDISE SUPPORT ASSOCIATE Body Mass Index 39.37 03/15/2018 9:59 AM MERCHANDISE SUPPORT ASSOCIATE Plan of Treatment Health Maintenance Due Date Last Done Comments MEDICARE AWV 12 MONTHS 1941 DTAP/TDAP/TD VACCINES (1 - Tdap) 1960 PNEUMOCOCCAL VACCINE 50+ (1 of 1 - PCV) 1991 ZOSTER VACCINE (1 of 2) 1991 Respiratory Syncytial Virus (RSV) Vaccine Pt: or over 60 yrs (1 - 1-dose 75+ series) 2016 COVID-19 VACCINE ( - 2023-2 5 season) 2023 DEPRESSION SCREENING 04/13/2024 INFLUENZA VACCINE (#1) 2024 HEPATITIS B VACCINE Aged Out No longe r eligible based on patient's age to complete this topic HIB VACCINE Aged Out No longer eligi ble based on patient's age to complete this topic HPV VACCINE Aged Out No longer eligi ble based on patient's age to complete this topic MENINGOCOCCAL (Group B) VACC INE SHARED DECISION-MAKING Aged Out No longer eligibl e based on patient's age to complete this topic MENINGOCOCCAL GROUPS A/C/Y/W VACCINE Aged Out No longer eligible b ased on patient's age to complete this topic Insurance MEDICARE CIGNA MEDICARE CIGNA Care Teams Sustainable Agriculture Specialist Relationship Specialty Start Date End Date Dayna Parikh APRN-CNP [address] [address] PCP - General Nurse Practitioner 03/15/18
--- OUTSIDE RECORDS SUMMARY | 2024-11-07 15:29 | XMS_ITS | Clinical Summary ---
Author Organization [facility] Address [address] [place] [address] Phone Care Team Providers Care Channel Layer Name Role Phone Unavailable Primary Care Provider [...] supper. Active fluticasone propionate (FLONASE) 50 mcg/spray [place], Suspension nasal inhaler Administer 2 Sprays in each nostril daily. Active acetaminophen (TYLENOL) 325 mg tablet Take 2 Tablets (650 mg) by mouth every 6 hours as needed for Other (See Comment) (See admin instructions). 1 Active albuterol sulfate 90 mcg/Actuation inhaler Take [...] Date Smoking Tobacco: Former Cigarettes Q uit: 1980 Smokeless Tobacco: Former Alcohol Use Standard Drinks/Week [...] 113 12/22/2020 10:50 AM CDT Temperature 36.8 C (98.2 F) 12/22/2020 10:50 AM CDT Respiratory Rate 15 12/22/2020 9:01 AM CDT Oxygen Saturation 89% 12/22/2020 10:50 AM CDT Inhaled Oxygen Concentration - - Weight 126.6 kg (279 lb) 12/20/2020 3:27 AM CDT Height 175.3 cm (5' 9) 12/10/2020 9:09 PM CDT Body Mass Index 41.2 12/10/2020 9:09 PM CDT Plan of Treatment Health Maintenance Due Date Last Done Comments PNEUMOCOCCAL VACCINE 50+ YEA RS (1 of 1 - PCV) 1991 02/11/2011 ZOSTER VACCINE (1 of 2) 1991 DTAP/TDAP/TD VACCINES (1 - Tdap) 10/26/2000 10/26/19 01 RSV VACCINE (60+ or ) (1 - 1-dose 75+ series) 2016 INFLUENZA VACCINE (#1) 2024 0, 03/01/2019, 01/19/2018, Additional history exists Insurance AETNA MEDICARE SUPP AESSI MEDICARE PART A AND B RX [employer] Medicare Part D Advance Directives For more information, please contact: [phone] * Full Code (Latest Code Status on File) Date Activated Date Inactivated Comments 12/13/2020 1:36 PM 12/22/2020 8:49 PM * Default Full Code - Needs Discussion Date Activated Date Inactivated Comments 12/11/2020 1:13 PM 12/13/2020 1:36 PM
--- OUTSIDE RECORDS SUMMARY | 2024-11-07 15:29 | XMS_ITS | Continuity of Care Document ---
Author Organization [facility] Address [address] [place] [address] Phone Care Team Providers Care Hvac Technician Residential Name Role Phone Joshua Sherman Unavailable Unavailable Procedures Procedure Date Post-op Follow-up Visit Refraction BF Plastic Sphcyl [place] To +/-4d .12-2d Scratch Resistant Coating Post-op Follow-up Visit Remove Cataract, Insert Lens PreOp Assessment Performed Eye Exam, New Patient Echo Exam Of Eye Advance Directives Directive Yes / No Effective Date File Name No Information Encounters Encounter Description Practice Location Reason(s) For Visit Diagnoses Date Provider Providers Copied on Encounter [facility], [address] [place] [address] [address], [place], [place], [address], [place] tel:[phone] SEC [facility] No Information [address] , [address], [place], [address], [place]. tel:[phone] [facility], [address], [place], [place], [address], [place] tel:[phone] [facility] [place] No Information 8 0 [employer] [facility] [employer] . [address] [facility], [address], [place], [place], [address], [place]. tel:[phone] Referring Provider: Joshua Kam, [address] [employer] [address], [place], [place], [place]. tel:[phone] [facility], [address], [place], [place], [address], tel:[phone] SEC [facility] No Information Sep-[address] [facility] [facility] [address], [address], [place], [place], [place], [place]. tel:[phone] [facility], [address] [facility], [place], [place], [address], [place] tel:[phone] [facility] No Information Sep-[address] [facility] [address], [address], [place], [place], [place], . tel:[phone] [facility], [address] [place] [address] [address], [place], [place], [address], [place] tel:[phone] [facility] No Information Sep-[address] [facility] [address], [address], [place], [place], [place], [place]. tel:[phone] Referring Provider: Joshua Kam, [address] [facility] [address], [place], [place], [place]. tel:[phone] Family History Family Member Type Diagnosis Age At Onset No Information Payers Payer name Insurance type Covered libertarian ID Authoriza tion(s) No Information Social History [...]
--- OUTSIDE RECORDS SUMMARY | 2024-11-07 15:29 | XMS_ITS | Referral Summary ---
Author Organization [facility] Address [address] [place] [address] Care Team Providers Care Piano Maker Name Role Phone Dayna Parikh NP Primary Care Provider [phone] Encounters Date Type Department Care Team Description 10/28/2024 Telephone [facility] Pulmonary at [address] [phone] [facility] 09/13/2024 10:00 AM CDT Office Visit [facility] Sleep Medicine at [address] [phone] Nuris Ventura MD Obstructive sleep apnea (Primary Dx); Hypersomnolence; Obesity, unspecified class, unspecified obesity type, unspecified whether serious comorbidity present 09/13/2024 11:00 AM CDT Office Visit [facility] Pulmonary at [address] [phone] Alexia Gu NP Pulmonary fibrosis (HCC) (Primary Dx); SARKIS (obstructive sleep apnea) from Last 3 Months Allergies Active Allergy [...] (40 mg total) by mouth daily Active omega-3 fatty acids-fish oil 300-1,000 mg capsule Take 2 capsules (2 g total) by mouth daily Active losartan (COZAAR) 25 mg tablet Take 1 tablet (25 mg total) by mouth 2 (two) times a day Active warfarin (COUMADIN) 5 mg tablet TAKE 1 TABLET BY MOUTH ONCE DAILY EVERY EVENING EXCEPT ON THU, THU AND THURSDAY TAKE A HALF TABLET Active Active Problems Problem Noted Date Diagnosed Date Pulmonary fibrosis 10/23/2023 Assessment & Plan (09/13/2024 3:34 PM CDT): Scarring Has been stable and chronic since COVID-19 infection He has recovered significantly from initial infection with improvement in activity tolerance CT from 09/2023 demonstrates chronic appearing areas of fibrotic change bilaterally In addition he has an elevated right hemidiaphragm. We will check one additional CT and if he is stable he will likely not require further follow-up unless he has changes in his condition. Assessment & Plan (10/23/2023 1:23 PM CDT): Scarring appears chronic since COVID-19 infection He has recovered significantly from initial infection I do not have access to recent CT done at [facility], requested images If unchanged or improving areas of fibrosis, likely will not require further follow-up SARKIS (obstructive sleep apnea) 10/23/2023 Assessment & Plan (09/13/2024 3:34 PM CDT): Positive in-lab study with an AHI of 39.6 He has seen sleep medicine and is on PAP with all sleep. 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 Gender Identity Not on file Sexual Orientation Not on file Last Filed Vital Signs Vital Sign Reading Time Taken Comments Blood Pressure 161/94 09/13/2024 10:35 AM CDT Pulse 43 09/13/2024 10:35 AM CDT Temperature 36.3 C (97.3 F) 09/13/2024 10:35 AM CDT Respiratory Rate 18 09/13/2024 10:3 5 AM CDT Oxygen Saturation 97% 09/13/2024 10: 35 AM CDT Inhaled Oxygen Concentration - - Weight 110.6 kg (243 lb 12.8 oz) 2024 10:35 AM CDT Height 170.2 cm (5' 7) 09/13/2024 10:3 5 AM CDT Body Mass Index 38.18 09/13/2024 10:35 AM CDT Plan of Treatment Not on file Insurance MEDICARE AETNA SENIOR SUPPLEMENT Care Teams Piano Maker Relationship Specialty Start Date End Date Dayna Parikh NP [address] [place] [id number] PCP - General Nurse Practitioner 10/23/23
--- OUTSIDE RECORDS SUMMARY | 2024-11-07 15:29 | XMS_ITS | Continuity of Care Document ---
Author Name [facility] Organization [facility] Care Team Providers Care Manager Legal Name Role Phone [facility] Unavailable Unavailable Problems Combined list of problems from [facility] and [facility] facilities. It does not include entries that were removed or entered in error. Problem Status Onset Date Problem Type Date of Resolution Comme nts Source Gout Active Condition [facility] Hypertension Active Condition [facility] Medications Combined list of outpatient medications from [facility] and [facility] facilities.Medications provided include 1) outpatient medications from the last 15 months, and 2) patient-reported medications. Medication Details Route Status Patient Instructions Prescription Expires Prescription Number Last Dispense Date Ordering Provider Order Date Order Qty Source ALLOPURINOL 100MG TAB TAKE ONE TABLET BY MOUTH ONCE A DAY ORAL ACTIVE IBETH ELMORE 2006 [facility] INDAPAMIDE 2.5MG TAB TAKE ONE TABLET BY MOUTH ONCE A DAY ORAL ACTIVE IBETH ELMORE 2006 [facility] NIFEDIPINE (EQV-CC) 90MG TAB,SA TAKE ONE TABLET BY MOUTH ORAL ACTIVE IBETH ELMORE 2006 [facility] POTASSIUM CHLORIDE 10MEQ TAB,SA TAKE ONE TABLET BY MOUTH ORAL ACTIVE IBETH ELMORE 2006 [facility] SIMVASTATIN 40MG TAB TAKE ONE-HALF TABLET BY MOUTH EVERY EVENING ORAL ACTIVE IBETH ELMORE 2006 [facility] TERAZOSIN HCL 10MG CAP TAKE 1 CAPSULE BY MOUTH AT BEDTIME ORAL ACTIVE IBETH ELMORE 2006 [facility] Immunizations Combined list of available immunizations from the [facility] and [facility] facilities. Immunization Series Date Given Administered By Site Reaction Lot Number CVX Code Drug Baggage And Mail Agent Status Comments Source INFLUENZA, UNSPECIFIED FORMULATION 2006 88 complet ed per letter [facility] N INFLUENZA, UNSPECIFIED FORMULATION 2005 88 complet ed ZAC Marcus
--- OUTSIDE RECORDS SUMMARY | 2024-11-07 15:29 | XMS_ITS | Data Portability ---
Author Organization [facility] [employer] [facility], Main Office Address [address] [place] [address] Care Team Providers Care Rn Allergy Name Role Phone AUDI RIDDLE Primary Care Provider [phone] AUDI RIDDLE Referring Provider [phone] GALEN MADDEN Primary Care Provider Assessment No assessment recorded. Plan of Treatment Reminders Order Date Submit Date Provider Last Modified By Organization Details Last Modified Time Details Appointments None recorded. Lab urinalysis, dipstick 2023 024 [facility] 200 [facility] [address], [place], [address], 4 11:47:59 culture, urine 2023 024 [facility] (Lab), [address] [place], [address], 4 08:47:10 culture, urine + sensitivity 2023 024 [email or web address] Not available 4 12:19:01 CMP, serum or plasma 2022 023 ELY Not available 3 15:09:31 HbA1c (hemoglobin A1c), blood 2022 023 [email or web address] Not available 4 15:54:52 lipid panel, serum 2022 023 ELY Not available 3 14:33:20 CMP, serum or plasma 2022 023 ELY Not available 3 14:33:24 Referral None recorded. Procedures None recorded. Surgeries None recorded. Imaging CT, chest, w/o contrast - DUE 09/2022 023 janett 7 [facility], [address] [place] [address], [place], [address], 3 10:02:26 Medication Orders sulfamethox azole 800 mg-trimetho prim 160 mg tablet 2023 024 [facility]61, [address] [facility], [place], [address], 4 09:32:32 Patient TargetsNo targets recorded. Patient InstructionsNo instructions recorded. Reason for Referral None Reported. Results Created Date Observation Date Name Description Value Unit Range Abnormal Flag Note LastModifiedBy Organization Detail LastModifiedTime 09/27/1909/26/2022 LIPID PANEL cholesterol 134 mg/dL 140-19 9 low NIH CHEMA NSUS RECOM MENDA TION FOR MYNOR STERO L: ADULT CHILD LOW RISK: <200 <170 BORDE RLINE : <200- 239 ----- HIGH RISK: >240 >200 Not Available [facility] (Lab) [address] [place], [address], 09/26/2022 14:33:20 09/27/19 23 09/26/2022 LIPID PANEL triglyceride s 148 mg/dL 0-150 NIH CHEMA NSUS REPOR T RECOM MENDA TION FOR TRIGL YCERI DELORES: ADULT CHILD LOW RISK: <150 ----- BODER LINE: 150-1 99 ----- HIGH RISK: >200 ----- Not Available [facility] (Lab) [address] [place], [address], 09/26/2022 14:33:20 09/27/19 23 09/26/2022 LIPID PANEL HDL cholesterol 40 mg/dL 40- Not Available [facility] (Lab) [address] [place], [address], 09/26/2022 14:33:20 09/27/19 23 09/26/2022 LIPID PANEL LDL cholesterol, calculated 64 mg/dL 0-130 NIH CHEMA NSUS REPOR T RECOM MENDA TIONS FOR LDL: ADULT CHILD LOW RISK <130 <110 (OPTI MAL LDL) <100 ----- BORDE RLINE : 130-1 59 ----- HIGH RISK: >160 >130 A TRIGL YCERI DE RESUL T >400 INVAL IDATE S THE CALCU LATIO N FOR LDL FRACT IONAT ION - THE LDL RESUL T WILL NOT BE REPOR ROSY. Not Available [facility] (Lab) [address] [place], [address], 09/26/2022 14:33:20 09/27/19 23 09/26/2022 COMPR EHENS NADIA METAB OLIC PANEL sodium 143 mmol/ L 137-14 5 Not Available [facility] (Lab) [address] [place], [address], 09/26/2022 14:33:24 09/27/19 23 09/26/2022 COMPR EHENS NADIA METAB OLIC PANEL potassium 3.8 mmol/ L 3.5-5. 1 Not Available [facility] (Lab) [address] [place], [address], 09/26/2022 14:33:24 09/27/19 23 09/26/2022 COMPR EHENS NADIA METAB OLIC PANEL chloride 100 mmol/ L 98-107 Not Available [facility] (Lab) [address] [place], [address], 09/26/2022 14:33:24 09/27/19 23 09/26/2022 COMPR EHENS NADIA METAB OLIC PANEL carbon dioxide 33 mmol/ L 22-30 high Not Available [facility] (Lab) [address] [place], [address], 09/26/2022 14:33:24 09/27/19 23 09/26/2022 COMPR EHENS NADIA METAB OLIC PANEL anion gap 13.8 mmol/ L 14-22 low Not Available [facility] (Lab) [address] [place], [address], 09/26/2022 14:33:24 09/27/19 23 09/26/2022 COMPR EHENS NADIA METAB OLIC PANEL glucose 106 mg/dL 70-99 high Not Available [facility] (Lab) [address] [place], [address], 09/26/2022 14:33:24 09/27/19 23 09/26/2022 COMPR EHENS NADIA METAB OLIC PANEL BUN 19 mg/dL 8-19 Not Available [facility] (Lab) [address] [place], [address], 09/26/2022 14:33:24 09/27/19 23 09/26/2022 COMPR EHENS NADIA METAB OLIC PANEL creatinine 1.13 mg/dL 0.66-1 .25 Not Available [facility] (Lab) [address] [place], [address], 09/26/2022 14:33:24 09/27/19 23 09/26/2022 COMPR EHENS NADIA METAB OLIC PANEL GFR >60 Refer ence Range : Laurel ge GFR Healt hy Adult : >60 mL/mi n/1.7 3 m2 Chron ic Kidne y Disea se: 15-60 mL/mi n/1.7 3 m2 Kidne y Failu re: <15/m L/min /1.73 m2 www.n iddk. nih.g ov The MDRD study equat ion has not been valid ated in child jhony <18 years of age; pregn ant women ; the elder ly >85 years of age; or in some racia l or ethni c subgr oups, such as Hispa nics. Outsi de the valid ated prudencio eters , estim ated GFR is less accur ate, requi ring clini josafat judgm ent on a case- by-ca se basis . Clini josafat inter preta tion for other races and ages must be made by the clini desiree. The MDRD study equat ion has not been valid ated for the evalu ation of serum creat inine relat ed to nutri mindy l statu s or medic ation usage . For perso ns <18 years of age, a pedia tric GFR calcu lator is avail able on the [facility] websi te: https ://ww w.kid flaco.o rg/pr ofess ional s/kdo qi/gf r_cal culat or Not Available [facility] (Lab) [address] [place], [address], 09/26/2022 14:33:24 09/27/19 23 09/26/2022 COMPR EHENS NADIA METAB OLIC PANEL alkaline phosphatase 75 U/L 38-126 Not Available [facility] (Lab) [address] [place], [address], 09/26/2022 14:33:24 09/27/19 23 09/26/2022 COMPR EHENS NADIA METAB OLIC PANEL alanine aminotransfe rase 25 U/L 0-50 Not Available [facility] (Lab) [address] [place], [address], 09/26/2022 14:33:24 09/27/19 23 09/26/2022 COMPR EHENS NADIA METAB OLIC PANEL aspartate aminotransfe rase 35 U/L 15-46 Not Available [facility] (Lab) [address] [place], [address], 09/26/2022 14:33:24 09/27/19 23 09/26/2022 COMPR EHENS NADIA METAB OLIC PANEL bilirubin, total 0.80 mg/dL 0.20-1 .30 Not Available [facility] (Lab) [address] [place], [address], 09/26/2022 14:33:24 09/27/19 23 09/26/2022 COMPR EHENS NADIA METAB OLIC PANEL calcium 8.9 mg/dL 8.4-10 .2 Not Available [facility] (Lab) [address] [place], [address], 09/26/2022 14:33:24 09/27/19 23 09/26/2022 COMPR EHENS NADIA METAB OLIC PANEL total protein 6.7 g/dL 6.3-8. 2 Not Available [facility] (Lab) [address] [place], [address], 09/26/2022 14:33:24 09/27/19 23 09/26/2022 COMPR EHENS NADIA METAB OLIC PANEL albumin 3.6 g/dL 3.0-4. 4 Not Available [facility] (Lab) [address] [place], [address], 09/26/2022 14:33:24 09/27/19 23 09/26/2022 COMPR EHENS NADIA METAB OLIC PANEL globulin 3.1 g/dL 2.6-4. 2 Not Available [facility] (Lab) [address] [place], [address], 09/26/2022 14:33:24 09/27/19 23 09/26/2022 COMPR EHENS NADIA METAB OLIC PANEL A/G ratio 1.2 ratio 1.0-2. 0 Not Available [facility] (Lab) [address] [place], [address], 09/26/2022 14:33:24 06/15/19 24 06/15/2023 urina lysis , dipst ick Leukocytes (reference range: negative delmi/ l) Large Not Available [facility] [address] [place], [place], [address], 06/15/2023 09:18:41 06/15/19 24 06/15/2023 urina lysis , dipst ick Nitrite (reference rage: negative mg/dl) negati ve Not Available [facility] [place] [address], [place], [address], 06/15/2023 09:18:41 06/15/19 24 06/15/2023 urina lysis , dipst ick Urobilinogen (reference range: 0.2-1 mg/dl) 0.2 Not Available [address] [place], [place], [address], 06/15/2023 09:18:41 06/15/19 24 06/15/2023 urina lysis , dipst ick Protein (reference range: negative mg/dl) Large Not Available [address] [place], [place], [address], 06/15/2023 09:18:41 06/15/19 24 06/15/2023 urina lysis , dipst ick pH (reference range: 5-7) 7.0 Not Available [address] [place], [place], [address], 06/15/2023 09:18:41 06/15/19 24 06/15/2023 urina lysis , dipst ick Blood (reference range: negative Humberto/ l) Large Not Available [address] [place], [place], [address], 06/15/2023 09:18:41 06/15/19 24 06/15/2023 urina lysis , dipst ick Specific [place] (reference range: 1.005-1.030) 1.025 Not Available [address] [place], [place], [address], 06/15/2023 09:18:41 06/15/19 24 06/15/2023 urina lysis , dipst ick Ketone (reference range: negative mg/dl) Negati ve Not Available [address] [place], [place], [address], 06/15/2023 09:18:41 06/15/19 24 06/15/2023 urina lysis , dipst ick Bilirubin (reference range: negative mg/dl) Negati ve Not Available [address] [place], [place], [address], 06/15/2023 09:18:41 06/15/19 24 06/15/2023 urina lysis , dipst ick Glucose (reference range: negative mg/dl) Negati ve Not Available [address] [place], [place], [address], 06/15/2023 09:18:41 06/15/19 24 06/15/2023 urina lysis , dipst ick Appearance Turbid Not Available [address] [place], [place], [address], 06/15/2023 09:18:41 06/15/19 24 06/15/2023 urina lysis , dipst ick Color Dark Yellow Not Available [address] [place], [place], [address], 06/15/2023 09:18:41 10/01/19 23 09/30/2022 CT, chest , w/o contr ast No observ ation record ed. [email or web address] [facility] [address] [place] [address] , [place], [address], 10/13/2022 16:49:07 07/19/19 25 07/18/2024 imagi ng/di agnos tic resul t No observ ation record ed. [facility] [address], [place], [address], 07/18/2024 14:09:00 07/19/19 25 07/18/2024 imagi ng/di agnos tic resul t No observ ation record ed. [facility] [address], [place], [address], 07/18/2024 14:10:26 Result Notes None recorded. Problems Name Problem SNOMED Code Status Onset Date Resolution Date Notes Provider Name and Address Organization Details Recorded Time Radiother apy follow-up 012728873 Completed Not Available [facility] 3 04:53:05 Osteoarth ritis of knee 738965539 Active Not Available [facility] 3 07:21:13 Benign prostatic hyperplas ia 886090539 Active Not Available [facility] 3 07:21:13 Chest pain 53604706 Completed Not Available [facility] 3 04:53:05 Skin symptom 489730227 Completed Not Available [facility] 3 04:53:05 Lesion of ulnar nerve 368461687 Active Not Available [facility] 3 07:21:13 Osteoarth ritis 423919499 Active Not Available [facility] 3 07:21:13 Hypokalem ia 18775625 Active Not Available [facility] 3 07:21:13 Acute conjuncti vitis 85252877 Completed Not Available [facility] 3 04:53:06 Hyperlipi demia 33988042 Active Not Available [facility] 3 07:21:13 Essential hypertens ion 62473345 Active Not Available [facility] 3 07:21:13 Urinary tract infectiou s disease 00540048 Completed Not Available [facility] 3 04:53:06 Gout 55903962 Active Not Available [facility] 3 07:21:13 Coronary atheroscl erosis 370272940 Active 2018 Not Available [facility] 3 07:21:13 History of repair of inguinal hernia 962370022 Active 2020 Not Available [facility] 3 07:21:13 COVID-19 718616100 Active 2020 Not Available [facility] 3 07:21:13 Diastolic heart failure 549924712 Active 2020 Not Available [facility] 3 07:21:13 Pneumonia caused by SARS-CoV- 2 85701614283 6855370 Active 2020 Not Available [facility] 3 07:21:13 Dependenc e on supplemen jonathan oxygen 80815095587 7 Active 2020 Not Available [facility] 3 07:21:13 Urinary incontine nce 410901371 Active 2020 Not Available [facility] 3 07:21:13 Restricti ve lung disease 94316666 Active 2021 Not Available [facility] 3 07:21:13 Abnormal findings on diagnosti c imaging of lung 758859495 Active 2022 Not Available [facility] 3 07:21:13 Fatigue 25534447 Active 2022 Not Available [facility] 3 07:21:13 Screening for malignant neoplasm of prostate Active 2022 MICHAEL Zarate [address], [address], [place], [address] , [facility] [employer] [facility] 3 09:34:26 Hyperglyc emia 19011610 Active 2022 MICHAEL Zarate [address], [place], [address] , [facility] [employer] [facility] 3 09:35:10 Dysuria 14915844 Active 2023 Marcy Hernandez RN null, [facility] [employer] [facility] 4 09:18:48 Notes:PFT 02/15/21 nl FEV1/F VC, FEV1 1.62 L (58%), TLC 3.39 L (50%), DLCO 51%, DLCO/VA 118% PFT 08/29/21 nl FEV1/FVC, FEV1 1.85 L (66%), TLC 3.73 L (61%), DLCO 72%, DLCO/VA 162% PFT 03/18/22 nl FEV/FVC, FEV1 1.63 L (71%), TLC 3.52 L (65%), DLCO 48%, DLCO/VA 125% Problem Notes None recorded. Procedures Surgical History Date Name Laterality Status Provider Name and Address Organization Details Recorded Time excision of basal cell carcinoma completed Not Available [facility] 06/11/2022 04:44:20 Hernia Repair completed Not Available [facility] 06/11/2022 04:44:20 partial meniscectomy of knee completed Not Available [facility] 06/11/2022 04:44:20 Imaging Results None recorded. Procedure Notes None recorded. Medical Equipment None Reported. Allergies Allergen ID Allergen Name Allergen Category Reaction Reaction Severity Criticality Documentation Date Start Date Code Code System Note Provider Name and Address Organization Details Recorded Time 8205 atorvasta tin medicatio n myalgias (muscle pain) Not available Not available 06/11/2022 16648 RxNorm makes pt tired also Not Available [facility] 05:04:18 Medications Name Sig Start Date Stop Date Status Note LastModified by Organization Details LastModified Time calcipotr iene 0.005%, fluoroura cil 5.5% gel APPLY TO ARM TWICE DAILY FOR 10 DAYS active Not Available Not Available No t Available losartan 50 mg tablet Take 1 tablet every day by oral route. 03/13 completed Not Available Not Available Not Available nifedipin e ER 30 mg tablet,ex tended release 24 hr TAKE 1 TABLET BY MOUTH ONCE DAILY active Not Available Not Available No t Available terazosin 5 mg capsule Take 1 po daily 09/11 completed Not Available Not Available Not Available atorvasta tin 40 mg tablet TAKE 1 TABLET BY MOUTH AT BEDTIME active Not Available Not Available No t Available doxycycli ne hyclate 100 mg capsule TAKE 1 CAPSULE BY MOUTH EVERY 12 HOURS FOR 10 DAYS 01/01 completed Not Available Not Available Not Available atorvasta tin 10 mg tablet TAKE ONE TABLET BY MOUTH ONCE DAILY 2014 active Pt states caused muscle cramps, tired Not Available Not Available Not Available azithromy heidi 250 mg tablet TAKE 2 TABLETS BY MOUTH TODAY, THEN TAKE 1 TABLET DAILY FOR 4 DAYS 12/01 /2021 completed Not Available Not Available Not Available indapamid e 2.5 mg tablet TAKE 1 TABLET BY MOUTH ONCE DAILY FOR 90 DAYS active Not Available Not Available No t Available nifedipin e ER 90 mg tablet,ex tended release TAKE ONE TABLET BY MOUTH ONCE DAILY 01/29 completed PATIENT REQUESTS NAME BRAND ONLY. DIDN'T FEEL WELL WITH GENERIC Not Available Not Available Not Available ofloxacin 0.3 % eye drops 04/27 completed Not Available Not Available Not Available metoprolo l succinate ER 50 mg tablet,ex tended release 24 hr TAKE 1 TABLET BY MOUTH ONCE DAILY active Not Available Not Available No t Available metoprolo l succinate ER 100 mg tablet,ex tended release 24 hr TAKE 1 TABLET BY MOUTH ONCE DAILY active Not Available Not Available No t Available simvastat in 10 mg tablet TAKE 1 TABLET EVERY DAY 09/18 completed Not Available Not Available Not Available nifedipin e ER 30 mg tablet,ex tended release TAKE 1 TABLET BY MOUTH ONCE DAILY active Not Available Not Available No t Available sulfameth oxazole 800 mg-trimet hoprim 160 mg tablet Take 1 tablet every 12 hours by oral route for 10 days. active Not Available Not Available No t Available omeprazol e 40 mg capsule,d elayed release active Not Available Not Available Not Available aspirin 81 mg tablet,de layed release Take by oral route. 2013 active every other day Not Available Not Available Not Available ketorolac 0.5 % eye drops 04/27 completed Not Available Not Available Not Available doxazosin 8 mg tablet active Not Available Not Available Not Available potassium chloride ER 20 mEq tablet,ex tended release(p art/cryst ) active Not Available Not Available Not Available famotidin e 20 mg tablet 01/01 completed Not Available Not Available Not Available prednisol one acetate 1 % eye drops,[facility] 03/01 completed Not Available Not Available Not Available nifedipin e ER 90 mg tablet,ex tended release 24 hr TAKE 1 TABLET BY MOUTH ONCE DAILY 01/03 completed Not Available Not Available Not Available benzonata te 100 mg capsule TAKE 1 CAPSULE BY MOUTH EVERY 8 HOURS NEEDED FOR COUGH 01/01 completed Not Available Not Available Not Available dexametha sone 2 mg tablet 01/01 completed Not Available Not Available Not Available cephalexi n 500 mg capsule Take 1 capsule twice a day by oral route for 5 days. active Not Available Not Available No t Available simvastat in 20 mg tablet TAKE 1 TABLET BY MOUTH ONCE DAILY 03/25 completed on atorvast atin Not Available Not Available Not Available Cipro 500 mg tablet Take 1 tablet every 12 hours by oral route with meals for 3 days. 02/16 completed Not Available Not Available Not Available Polytrim 10,000 unit-1 mg/mL eye drops INSTILL 1 DROP INTO LEFT EYE EVERY 3 HOURS (DO NOT EXCEED 6 DOSES PER DAY)FOR 7 DAYS active Not Available Not Available No t Available omeprazol e 20 mg capsule,d elayed release TAKE ONE CAPSULE BY MOUTH ONCE DAILY 03/19 completed Not Available Not Available Not Available allopurin ol 300 mg tablet TAKE 1 TABLET BY MOUTH ONCE DAILY active Not Available Not Available No t Available mupirocin 2 % topical ointment 03/01 completed Not Available Not Available Not Available ibuprofen 600 mg tablet TAKE ONE TABLET BY MOUTH THREE TIMES DAILY NEEDED 01/16 completed Not Available Not Available Not Available albuterol sulfate HFA 90 mcg/actua tion aerosol inhaler As needed active Not Available Not Available No t Available cefdinir 300 mg capsule Take 1 capsule every 12 hours by oral route for 10 days. active Not Available Not Available No t Available losartan 100 mg tablet TAKE ONE TABLET BY MOUTH ONCE DAILY active Not Available Not Available No t Available fluticaso ne propionat e 50 mcg/actua tion nasal spray,thuy pension INSTILL 2 SPRAYS INTO THE NOSTRILS ONCE DAILY active Not Available Not Available No t Available finasteri de 5 mg tablet Take 1 tablet by mouth once daily active Not Available Not Available No t Available amoxicill in 875 mg-potass ium clavulana te 125 mg tablet Take 1 tablet every 12 hours by oral route for 10 days. 10/26 completed Not Available Not Available Not Available omeprazol e 20 mg tablet,de layed release Take 1 tablet every day by oral route for 30 days. 12/23 completed Not Available Not Available Not Available GaviLyte- G 236 gram-22.7 4 gram-6.74 gram-5.86 gram oral solution 10/27 completed Not Available Not Available Not Available Fluzone High-Dose 4186-9515 (PF) 180 mcg/0.5 mL intramusc ular syringe ADM 0.5ML UTD active Not Available Not Available No t Available potassium chloride ER 20 mEq tablet,ex tended release Take 3 tablet(s ) every day by oral route. active Not Available Not Available No t Available Fluzone High-Dose Quad 2020 (PF) 240 mcg/0.7 mL IM syringe TO BE ADMINIST ERED BY CryoportI ST FOR IMMUNIZA TION 09/17 completed Not Available Not Available Not Available Vitals Date Recorded Body height Body mass index (BMI) Body weight Body temperature Heart rate Oxygen saturation Oxygen saturation in Arterial blood by Pulse oximetry Systolic And Diastolic Provider Name and Address Organization Details Last Updated DateTime 3 170.18 cm 41.7 kg/m2 159512. 57 g 97.6 [degF] 97.6 /min 96 % 96 % 142/54 mm[Hg] Norma Lord [employer] [facility] [employer] 3 10:20:22 Date Recorded Body height Body mass index (BMI) Body weight Body temperature Heart rate Oxygen saturation Oxygen saturation in Arterial blood by Pulse oximetry Systolic And Diastolic Provider Name and Address Organization Details Last Updated DateTime 3 170.18 cm 41 kg/m2 703444. 2 g 97.3 [degF] 66 /min 97 % 97 % 130/60 mm[Hg] RHONDA Spring [employer] [facility] [employer] 3 10:16:08 Date Recorded Body height Body temperature Provider N carlos and Address Organization Details Last Updated DateTime 01/23/2023 170.18 cm 97.1 [degF] Paula England MA [employer] [facility] [employer] 01/23/2023 10:20:08 Date Recorded Body mass index (BMI) Body weight Heart rate Oxygen saturation Oxygen saturation in Arterial blood by Pulse oximetry Systolic And Diastolic Provider Name and Address Organization Details Last Updated DateTime 3 37.9 kg/m2 233842. 35 g 64 /min 96 % 96 % 146/62 mm[Hg] Norma Lord [employer] [facility] [employer] 3 10:31:21 Date Recorded Body height Body mass index (BMI) Body weight Body temperature Heart rate Oxygen saturation Oxygen saturation in Arterial blood by Pulse oximetry Systolic And Diastolic Provider Name and Address Organization Details Last Updated DateTime 3 170.18 cm 37.9 kg/m2 254952. 35 g 97.2 [degF] 72 /min 96 % 96 % 142/62 mm[Hg] MICK Hernadez - [facility] 3 09:14:13 Social History Question Answer Notes LastModified by Organization Details LastModified Time Tobacco Smoking Status Former Smoker quit smoking 1970' Not Available [employer] 06/11/2022 04:41:59 Do You Have An Advance Directive? Yes [email or web address] [id number] Information not available 06/11/2022 Are You Blind Or Do You Have Difficulty Seeing? Yes Wears Glasses [id number] Information not available 06/11/2022 What Is Your Level Of Caffeine Consumption? Moderate [id number] Information not available 06/11/2022 How Much Tobacco Do You Chew? None [id number] [id number] Information not available 06/11/2022 In The 14 Days Before Symptom Onset, Have You Had Close Contact With A Laboratory-confi rmed COVID-19 While That Case Was Ill? No Information not available 06/25/2022 In The 14 Days Before Symptom Onset, Have You Had Close Contact With A Person Who Is Under Investigation For COVID-19 While That Person Was Ill? No Information not available 06/25/2022 Are You Deaf Or Do You Have Serious Difficulty Hearing? Yes Wears Hearing Aid [id number] Information not available 06/11/2022 What Type Of Diet Are You Following? REGULAR [id number] Information not available 06/11/2022 Which Illicit Or Recreational Drugs Have You Used? None [email or web address] [id number] Information not available 06/11/2022 What Is The Highest Grade Or Level Of School You Have Completed Or The Highest Degree You Have Received? [id number] Information not available 06/11/2022 Do You Have An Electrostatic Air Filter? No [id number] Information not available 06/11/2022 When Did You Quit Smoking? 17+yearssincelastc igarette MIGRATION.030 [id number] Information not available 06/11/2022 Do You Have A Humidifier? No MIGRATION.0301 [id number] Information not available 06/11/2022 Where Do You Live? [place]House MIGRATION.0301 [id number] Information not available 06/11/2022 Do You Have A Medical Power Of Fruit Harvester? No MIGRATION.0301 [id number] Information not available 06/11/2022 Do You Have Moisture Problems In Your Home? No MIGRATION.0301 [id number] Information not available 06/11/2022 Do You Have Any Pets? No MIGRATION.0301 [id number] Information not available 06/11/2022 What Is Your Relationship Status? MIGRATION.0301 [id number] Information not available 06/11/2022 Do You Have Smoke And Carbon Monoxide Detectors In Your Home? Yes MIGRATION.0301 [id number] Information not available 06/11/2022 At What Age Did You Start Smoking Tobacco? 20 MIGRATION.0301 092995 Information not available 06/11/2022 Are You Passively Exposed To Smoke? No MIGRATION.0301 [id number] Information not available 06/11/2022 How Much Tobacco Do You Smoke? 1 PPD MIGRATION.0301 [id number] Information not available 06/11/2022 How Many Years Have You Smoked Tobacco? 15 Quit In The ' MIGRATION.0301 470927 Information not available 06/11/2022 Have You Recently Traveled Abroad? No MIGRATION.0301 [id number] Information not available 06/11/2022 Do You Have Difficulty Walking Or Climbing Stairs? No MIGRATION.0301 317101 Information not available 06/11/2022 Do You Have Any Dietary Restrictions? No MIGRATION.0301 176873 Information not available 06/11/2022 Sex: Unknown Functional Status Question Answer Note LastModified by Organizat ion Details LastModified Time Do you use any illicit or recreational drugs? No MIGRATION.390385 5692 Information not available 06/11/2022 Do you or have you ever used any other forms of tobacco or nicotine? Yes MIGRATION.279655 9212 Information not available 06/11/2022 What is your level of alcohol consumption? Occasional MIGRATION.861842 3447 Information not available 06/11/2022 Do you or have you ever used smokeless tobacco? Never used smokeless tobacco MIGRATION.100903 6241 Information not available 06/11/2022 Are you able to walk? YESWOREST MIGRATION.817249 8959 Information not available 06/11/2022 Do you have difficulty doing errands alone? No MIGRATION.707855 8321 Information not available 06/11/2022 Are you able to care for yourself independently? Yes MIGRATION.755736 8886 Information not available 06/11/2022 Do you have difficulty dressing, bathing, grooming, or toileting? No MIGRATION.531888 4199 Information not available 06/11/2022 Do you or have you ever used e-cigarettes or vape? Never used electronic cigarettes MIGRATION.248485 6716 Information not available 06/11/2022 What is your exercise level? None MIGRATION.442019 7970 Information not available 06/11/2022 Mental Status Question Answer Note LastModified by Organizat ion Details LastModified Time Do you have difficulty concentrating, remembering or making decisions? No MIGRATION.[id number] 6 Information not available 06/11/2022 Family History Relationship Description Onset Age of this Age Resolved Age Notes LastModified by Organization Details LastModified Time Father Cerebrovascu lar accident MIGRATION.163 [id number] Not available 06/11/2022 04:44:26 Mother Diabetes mellitus MIGRATION.988 [id number] Not available 06/11/2022 04:44:26 Mother Hypertensive disorder MIGRATION.588 [id number] Not available 06/11/2022 04:44:26 Mother Myocardial infarction MIGRATION.943 [id number] Not available 06/11/2022 04:44:26 Brother Diabetes mellitus MIGRATION.969 [id number] Not available 06/11/2022 04:44:26 Medical History Condition Response URINARY/BLADDER/KIDNEY PROBLEMS Y GOUT Y HYPERTENSION Y Immunizations Vaccine Type Date Status Note Provider Nam e and Address Organization Details Recorded Time SARS-COV-2 (COVID-19) vaccine, UNSPECIFIED 2 completed Not Available [facility] 10/01/2022 07:21:13 Influenza, split virus, quadrivalent, preservative 0 completed Not Available [facility] 10/01/2022 07:21:13 Influenza, split virus, quadrivalent, preservative 9 completed Not Available [facility] 10/01/2022 07:21:13 Influenza, split virus, quadrivalent, preservative 8 completed Not Available [facility] 10/01/2022 07:21:13 Influenza, high-dose, trivalent, PF 6 completed Not Available [facility] 10/01/2022 07:21:13 Influenza, split virus, trivalent, preservative 5 completed Not Available [facility] 10/01/2022 07:21:13 Influenza, split virus, trivalent, preservative 3 completed Not Available [facility] 10/01/2022 07:21:13 Influenza, split virus, trivalent, preservative 1 completed Not Available [facility] 10/01/2022 07:21:13 Pneumococcal Conjugate, unspecified formulation 1 completed Not Available [facility] 10/01/2022 07:21:13 Td (adult) 1 completed Not Available [facility] 10/01/2022 07:21:13 Influenza, high-dose, trivalent, PF 4 completed Not Available [facility] 10/01/2022 07:21:13 Past Encounters Encounter ID Performer Location Encounter Start Date Encounter Closed Date Diagnosis/Indication Diagnosis SNOMED-CT Code Diagnosis ICD10 Code Diagnosis Note [id number] [facility] [address] [place] [address] 09/17/2020 00:00:00 09/17/2020 09:15:54 [id number] Galen Syed MD [facility] [place] donato [address] [place] [address] 01/01/2021 00:00:00 01/02/2021 08:08:20 [id number] Galen Syed MD [facility] donato [address] [place] [address] 01/02/2021 00:00:00 01/02/2021 11:04:07 [id number] [facility] [place] [facility] [place] Sue [address] [place] [address] 01/23/2021 00:00:00 01/23/2021 23:18:53 [id number] [facility] Pulmon[facility] [place] [address] [place] [address] 03/06/2021 00:00:00 03/06/2021 15:35:09 [id number] Javier Sauceda MD [facility] [place] [address] [place] [address] 03/13/2021 00:00:00 03/13/2021 15:06:39 [id number] Galen Syed MD [facility] [place] [address] [place] [address] 03/19/2021 00:00:00 03/19/2021 08:58:30 [id number] [facility] [place] [facility] [place] [address] [place] [address] 07/10/2021 00:00:00 07/10/2021 16:46:32 [id number] Galen Syed MD [facility] [place] [address] [place] [address] 09/17/2021 00:00:00 09/17/2021 08:26:34 [id number] MELVI Agustin [facility] [place] [address] [place] [address] 09/25/2021 00:00:00 09/25/2021 16:42:06 [id number] MELVI Agustin [facility] [place] [address] [place] [address] 01/29/2022 00:00:00 01/29/2022 16:05:54 [id number] Galen Syed MD [facility] [place] [address] [place] [address] 03/19/2022 00:00:00 03/19/2022 19:27:33 [id number] Alexia Riccardo [facility] [place] [address] [place] [address] 06/25/2022 11:06:49 06/26/2022 08:52:52 History of SARS-CoV-2 1983777861 97547183 Z86.16 Diagnosed Novemberif icant improvemen t in symptoms Dependence on supplemental oxygen 1110128558 07 Z99.81 2 liters at nightReche ck RAFAELA as above Restrictiv e lung disease 64703653 J98.4 PFT with restrictio n. likely due to morbid obesityHRC T with no honeycombi ng or bronchiect asisCheck RAFAELA on 2 liters Abnormal f indings on diagnostic imaging of lung 495269547 R91.8 GGO bilaterall y, stable since 03/2020, recheck chest as above [id number] Alexia Gu [facility] [place] [address] [place] [address] 09/22/2022 10:09:55 09/22/2022 10:52:08 Restrictive lung disease 28694574 J98.4 PFT with restrictio n. likely due to morbid obesityHRC T 03/2022 with no honeycombi ng or bronchiect asisONO on 2 liters 06/2022 with 5 minutes at or below 88%Recheck CT chest to assess scarring History of SARS-CoV-2 29 59958133 28546163 Z86.16 Diagnosed November icant improvemen t in symptoms Dependence on supplemental oxygen 9571418984 07 Z99.81 2 liters at nightONO as above Abnormal f indings on diagnostic imaging of lung 197558540 R91.8 GGO bilaterall y, stable since 03/2020, recheck chest as above Fatigue 42585918 R53.83 Concerns for SARKIS - we have discussed this in detailHe declines SARKIS evaluation with home or in-lab studyDIscu ssed the risks of uncorrecte d SARKIS. Activity intolerance 774 98078 Z73.89 Multifacto ralWeight loss and increased activity/e xercise plan are imperative [id number] Galen Syed MD [facility] [address] [place] [address] 09/23/2022 09:40:15 09/23/2022 10:30:56 Hyperlipidemia 03748364 E78.5 [id number] Alexia Gu, PROFESSOR OF EDUCATION-BC [facility] Pulmon[place] gy [place] [address] [place] [address] 01/23/2023 10:17:27 01/23/2023 11:21:29 Restrictive lung disease 15581008 J98.4 PFT with restrictio n. likely due to morbid obesityHRC T 03/2022 with no honeycombi ng or bronchiect asisONO on 2 liters 06/2022 with 5 minutes at or below 88%Recheck CT chest 09/2022 with unchanged scarringRe commend repeat in 1 year, PRN for changes Dependence on supplemental oxygen 3468756097 07 Z99.81 2 liters at nightHe has good use and clinical benefit Fatigue 43307218 R53.83 Concerns for SARKIS - we have discussed this in detailHe declines SARKIS evaluation with home or in-lab studyDiscu ssed the risks of uncorrecte d SARKIS. History of SARS-CoV-2 29 75574135 76708899 Z86.26 November 2020 Activity intolerance 774 24836 Z73.89 Multifacto ralWeight loss and increased activity/e xercise plan are imperative Abnormal f indings on diagnostic imaging of lung 009963334 R91.8 GGO bilaterall y, stable since 03/2020, recheck chest as above [id number] Galen Syed MD [facility] [place] [address] [place] [address] 03/25/2023 09:03:19 03/25/2023 09:41:56 Screening for malignant neoplasm of prostate 824668479 Z12.5 Hyperlipidemia 16201951 E78.5 Hyperglycemia 84055437 R 73.9 [id number] Galen Syed MD [facility] [place] [address] [place] [address] 06/15/2023 09:07:44 06/23/2023 10:49:34 Dysuria 16829200 R30.0 Health Concerns Section Related Observation LastModified by Organization Detai ls LastModified Time None Recorded Concern Status LastModified by Organization Details LastModified Time None Recorded Advance Directives Directive Y: Payers Insurance Date Sequence Insurance Name Policy Number Policy Goode Covered Member ID Goode Member ID Guarantor Name 09/22/2023 1 [place] J Luis Spence [id number] J Luis Spence 06/24/2023 2 [employer] (MEDICARE SUPPLEMENT) J Luis Spence [id number] J Luis Spence
--- OUTSIDE RECORDS SUMMARY | 2024-11-07 15:29 | XMS_ITS | Clinical Summary ---
Author Organization [facility] [address] Address [address] [place] [address] Care Team Providers Care Ukrainian Folk Arts Instructor Name Role Phone Dayna Parikh NP Primary Care Provider [phone] Allergies Active Allergy Reactions Criticality Noted Date [...] MOUTH ONCE DAILY EVERY EVENING EXCEPT ON MON, WED AND THURSDAY TAKE A HALF TABLET Active [...] have access to recent CT done at [facility], requested images If unchanged or improving areas [...] Type Department Care Team Description 10/28/2024 Telephone [facility] Pulmonary at [address] [place] [phone] Pia Lujan CMA 09/13/2024 11:00 AM CDT Office Visit [facility] Pulmonary at [address] [place] [phone] Alexia Gu NP Pulmonary fibrosis (HCC) (Primary Dx); SARKIS (obstructive sleep apnea) 09/13/2024 10:00 AM CDT Office Visit [facility] Sleep Medicine at [address] [place] [phone] Nuris Ventura MD Obstructive sleep apnea (Primary [...] on file 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 Gender Identity Not on file Sexual Orientation [...] Weight 110.6 kg (243 lb 12.8 oz) 06/03/ 2025 10:35 AM CDT Height 170.2 cm (5' 7) 09/13/2024 10:3 5 AM CDT Body Mass Index 38.18 09/13/2024 10:35 AM CDT Plan of Treatment Health Maintenance Due Date Last Done Comments Depression Screening 1940 Fall Risk Assessment 1940 Hepatitis B Screening 1959 Zoster Vaccine (1 of 2) 1991 DTaP/Tdap/Td Vaccine (1 - Tdap) 10/26/2000 1 Well Visit 65+ 2006 Covid-19 Vaccine (2023-2 5 season) 2023 01/05/2023, 01/06/2022, 08/22/2021, Additional history exists Influenza Vaccine (#1) 2024 3, 12/19/2021, 02/13/2021, Additional history exists Pneumococcal vaccine 65+ Completed 018, 01/09/2017, 02/11/2011 Insurance MEDICARE [employer] SENIOR SUPPLEMENT Care Teams Ukrainian Folk Arts Instructor Relationship Specialty Start Date End Date Dayna Parikh NP [address] [place] [address] PCP - General Nurse Practitioner 10/23/23
== END 2024-11-07 15:23 | disposition home or self-care (01) ==
PROVIDERS: PCP Nurse Practitioner Adult Health; Visit Provider Nurse Practitioner
DX: J84.10 Pulmonary fibrosis, unspecified (principal)
CPT/HCPCS: 71250

== ENCOUNTER 2025-03-23 09:57 | Outpatient (CLI) | payer MEDICARE, SELFPAY ==
[2025-03-23 18:59] LABS: Cholesterol 114 mg/dL (0-200); HDL Direct 38 mg/dL; Triglycerides 120 mg/dL (<150)
[2025-03-23 19:01] LABS: Alanine Aminotransferase 32 U/L (6-50); Albumin Level 3.9 g/dL (3.5-5.1); Alkaline Phosphatase 92 U/L (38-126); Anion Gap 1 mmol/L (4-12); Aspartate Amino Transferase 48 U/L (17-59); Bilirubin,Total 1.1 mg/dL (0.2-1.3); Blood Urea Nitrogen 34 mg/dL (9-20); Calcium 9.4 mg/dL (8.4-10.2); Carbon Dioxide 33 mmol/L (22-30); Chloride 107 mmol/L (98-107); Estimated Glomerular Filt Rate 46; Glucose 98 mg/dL (65-110); Potassium 4.2 mmol/L (3.4-5.0); Sodium 141 mmol/L (137-145); Total Protein 7.4 g/dL (6.3-8.2)
== END 2025-03-23 09:58 | disposition home or self-care (01) ==
PROVIDERS: PCP Nurse Practitioner Adult Health; Visit Provider Nurse Practitioner Adult Health
DX: I10 Essential (primary) hypertension (principal)
CPT/HCPCS: 36415; 80053; 80061